=== PATIENT | female | born 1980 | race Caucasian/White ===

== ENCOUNTER → 2018-09-16 08:44 | Outpatient (CLI) | payer BC, MEDICAID, SELFPAY ==
[2018-09-17 14:35] LABS: Amphetamine/Metha Screen,Urine Negative ng/mL (<1000); Barbiturates Screen,Urine Negative ng/mL (<200); Benzodiazepines Screen,Urine Negative ng/mL (<200); Cannabinoid Screen,Urine Negative ng/mL (<50); Cocaine Screen,Urine Negative ng/mL (<300); Methadone Screen,Urine Negative ng/mL (<300); Opiate Screen,Urine Negative ng/mL (<300); Phencyclidine Screen,Urine Negative ng/mL (<25)
== END ==
PROVIDERS: Visit Provider Nurse Practitioner Family
DX: Z79.899 Other long term (current) drug therapy (principal)
CPT/HCPCS: 80305

== ENCOUNTER → 2019-01-13 09:35 | Outpatient (CLI) | payer MEDICAID, SELFPAY ==
--- NOTE | 2019-01-13 09:50 | XR_ITS ---
XR wrist LT min 3V HISTORY anterior wrist pain, prior fall with injury and pain ITS.REASON: possible left wrist fracture ORDERING PHYSICIAN: Moncho Jolly MD PATIENT AGE: 38 years Comparison: None FINDINGS: No fracture or dislocation. No lytic or blastic change. There is normal mineralization.. The joint spaces are well-preserved. No significant degenerative/arthritic changes. No erosive changes evident.. There is generalized vascular calcification . There is a healing fracture involving the proximal phalanx of the fifth finger as before IMPRESSION: Negative wrist
[2019-01-13 11:03] LABS: Hemoglobin 10.6 g/dL (12.2-16.2)
[2019-01-15 08:16] LABS: Parathyroid Hormone Intact 724 pg/mL (15-65)
== END ==
PROVIDERS: PCP Nurse Practitioner Family; Referring Provider Internal Medicine Nephrology; Visit Provider Orthopaedic Surgery
DX: M25.532 Pain in left wrist (principal); N25.81 Secondary hyperparathyroidism of renal origin; D63.8 Anemia in other chronic diseases classified elsewhere
CPT/HCPCS: 36415; 73110; 83970; 85018

== ENCOUNTER → 2019-05-01 16:14 | Outpatient (CLI) | payer MEDICAID, SELFPAY ==
--- NOTE | 2019-05-01 16:20 | XR_ITS ---
XR forearm LT 2V HISTORY: Pain ITS.REASON: pain ORDERING PHYSICIAN: Tanna Solis APRN PATIENT AGE: 39 years COMPARISON: None FINDINGS: No obvious fracture, dislocation, lytic change or blastic change. Normal mineralization. Unremarkable soft tissues. There is generalized vascular calcification. Surgical clips are present in the antecubital region with a rounded soft tissue density overlying the lower biceps area to the patient's AV fistula IMPRESSION: No acute finding
--- NOTE | 2019-05-01 16:20 | XR_ITS ---
EXAM: XR cervical spine 3V HISTORY: Neck pain ITS.REASON: pain ORDERING PHYSICIAN: Tanna Solis APRN PATIENT AGE: 39 years COMPARISON: None FINDINGS: Normal alignment. No fracture or dislocation. No lytic or blastic change. No significant degenerative change. The disc spaces are preserved. Carotid calcifications are present IMPRESSION: Negative cervical spine
== END ==
PROVIDERS: PCP Nurse Practitioner Family; Visit Provider Nurse Practitioner Family
DX: M54.2 Cervicalgia (principal); M79.632 Pain in left forearm
CPT/HCPCS: 72040; 73090

== ENCOUNTER → 2019-06-01 08:00 | Outpatient (POV) | payer MEDICAID, SELFPAY | PROVIDERS: Visit Provider Specialist | DX: G56.02 Carpal tunnel syndrome, left upper limb (principal); R20.0 Anesthesia of skin; R20.2 Paresthesia of skin | CPT/HCPCS: 95886; 95908 ==

== ENCOUNTER → 2019-06-15 12:52 | Outpatient (CLI) | payer MEDICAID, SELFPAY ==
--- NOTE | 2019-06-15 12:56 | CA_ITS ---
APPROVED REPORT Last Putter Away: FABIOLA Laterality: Bilateral Study Quality: Good Indications: carotid calcification seen on X-ray Risk Factors Hypertension: Doppler Spectral Velocity Analysis ECA (R) 84.10/ cm/s ECA (L) 87.20/ cm/s dICA (R) 71.50/25.10 cm/s dICA (L) 85.60/25.90 cm/s Monica (R) 83.30/32.20 cm/s Monica (L) 95.10/37.70 cm/s pICA (R) 88.00/32.20 cm/s pICA (L) 91.90/28.30 cm/s dCCA (R) 62.90/20.40 cm/s dCCA (L) 71.50/24.40 cm/s pCCA (R) 56.60/13.40 cm/s pCCA (L) 74.60/18.10 cm/s Vert (R) 40.10/ cm/s Vert (L) 61.30/ cm/s ICA/CCA 1.39 ICA/CCA 1.33 Conclusion Duplex evaluation demonstrates stenosis of the right proximal internal carotid artery <20% with PSV <140 cm/sec, EDV <100 cm/sec, and IC/CC Ratio <4.0.Duplex evaluation demonstrates stenosis of the left proximal internal carotid artery in the range of 20-49% with PSV <140 cm/sec, EDV <100 cm/sec, and IC/CC Ratio <4.0.Antegrade flow seen bilateral vertebral arteries. Electronically signed by : Madhav Nelson MD 06/16/2019 09:39:58
== END ==
PROVIDERS: PCP Emergency Medicine; Visit Provider Internal Medicine
DX: I65.23 Occlusion and stenosis of bilateral carotid arteries (principal)
CPT/HCPCS: 93880

== ENCOUNTER → 2019-06-19 08:08 | Outpatient (CLI) | payer MEDICAID, SELFPAY ==
--- NOTE | 2019-06-19 | CA_ITS ---
APPROVED REPORT Exam: Pharmacologic Technologist: teddy walter, Ht: 5 ft 7 in Wt: 220 lbs BSA: 2.11 m2 HR: 71 bpm BP: 138/67 mmHg Rhythm: NSR Indications: Abn EKG, SOB Medical History Medications: Lisinopril,,,,, Gabapentin,,,,, Pantoprazole,,,,, Carvedilol,,,,, INSULIN,,,,, Venlafaxine,,,,, TorSEMIDE,,,,, MethylpredNISOne,,,,, TriaMcinlone,,,,, Cinacalet,,,,, Ferric citrate,,,,, Allergies: Morphine Stress Test Details Test: LEXISCAN HR Resting HR: 69 bpm Max Heart Rate (APMHR): 183 bpm Max HR Achieved: 78 bpm Target HR (85% APMHR): 155 bpm % of APMHR: 42 Recovery HR: 76 bpm BP Resting BP: 138.0/67.0 mmHg Max BP: 134/62 mmHg Recovery BP: 123.0/62.0 mmHg ECG Resting ECG: NSR Clinical Reason for Termination: Completed Protocol Exercise duration: 04:15 min Highest Stage Achieved: Exercise capacity: 1.0 METs Stress ECG Conclusion Denies chest pain. Rare PVC. Less than 1.5mm ST segment changes. Non- diagnostic. Images pending. Electronically signed by : David Whatley, 06/24/2019 11:41:11
--- NOTE | 2019-06-19 08:09 | NM_ITS ---
APPROVED REPORT Exam: Nuclear Stress Test NM EXAM: Myocardial Perfusion REST/STRESS Imaging Protocol: Rest Tc-99m/Stress Tc-99m 1 day Resting Data Rest SPECT myocardial perfusion imaging was performed in supine position 30 minutes following the intravenous injection of 10.25 mCi of TC99 Time of rest injection: 8:20AM Administration Route: IV Administration Site: Right AC Pharmacologic Stress Pharmacologic stress test was performed by injecting Regadenoson 0.4 mg IV push followed by the intravenous injection of 31.1 mCi of TC99 Time of stress injection: 9:25AM Time of stress imagin:10AM Administration Route: IV Administration Site: Right AC Heart Rate at time of stress injection: 78 bpm. Gated Stress SPECT was performed 45 minutes after stress injection. The images were gated to evaluate regional wall motion and calculate left ventricular ejection fraction. Nuclear Conclusion Uniform myocardial activity with both stress and rest gated images calculated ejection fraction of 65% with normal wall motion No scintigraphic evidence of Lexiscan induced myocardial ischemia with normal ejection fraction and normal wall motion Electronically signed by : David Whatley, 06/19/2019 13:23:06
--- NOTE | 2019-06-19 10:15 | HMH.ITSHM ---
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 []triamcinolone forsemide patoprazole medrol lisinopril carvedilol insulin calcitriol gabapentin
== END ==
PROVIDERS: PCP Nurse Practitioner Family; Visit Provider Internal Medicine
DX: E11.69 Type 2 diabetes mellitus with other specified complication (principal); I65.29 Occlusion and stenosis of unspecified carotid artery; R06.09 Other forms of dyspnea; R60.9 Edema, unspecified; R94.31 Abnormal electrocardiogram [ECG] [EKG]; Z79.4 Long term (current) use of insulin
CPT/HCPCS: 78452; 93017; 93306; A9502; J2785

== ENCOUNTER → 2019-08-24 11:58 | Outpatient (CLI) | payer MEDICARE, SELFPAY | PROVIDERS: Visit Provider Orthopaedic Surgery | DX: Z48.89 Encounter for other specified surgical aftercare (principal); Z98.890 Other specified postprocedural states; G56.02 Carpal tunnel syndrome, left upper limb | CPT/HCPCS: 87070; 87077; 87186; 87205 ==

== ENCOUNTER 2019-09-03 13:30 | Outpatient (RCR) | payer MEDICARE, SELFPAY | END 2019-09-03 13:35 | disposition home or self-care (01) | LOC: PT 13:30 | PROVIDERS: Visit Provider Internal Medicine Nephrology | DX: R27.8 Other lack of coordination (principal) | CPT/HCPCS: 97110; 97163 ==

== ENCOUNTER 2019-09-07 14:00 | Outpatient (RCR) | payer MEDICARE, SELFPAY ==
--- NOTE | 2019-08-19 16:39 | HMH.PTOPWND ---
Rehab Outpt Wound Evaluation Rehab OP Wound Evaluation Start: 08/19/19 14:46 Freq: Status: Active Protocol: Document 08/19/19 15:20 PWJACE (Rec: 08/19/19 15:39 PWJACE [id number]) Electronically Signed By Yonny Cortez, PT 08/19/19 15:20 Subjective/History History History This is the initial Physical Therapy wound evaluation for Mily Wright. Pt had Carpal tunnel release sx in early july. Pt reports ~ 2 weeks later she had stitches removed and ~ 2 days later she fell on outstretched hand opening surgical incision. Pt rpeorts she self treated for ~ 1 week and returned to Ortho who referred to Wound clinic. Subjective Subjective Pt reports severe c/o TTP Wound Eval Wound Left Proximal Volar Hand Wound Type Incision Is This a Chronic Wound Yes Wound Length (cm) 2.5 Wound Width (cm) 1.0 Wound Bed Appearance Yellow,Ruelas,White,Slough, Eschar,Necrotic Percentage Granulated (%) 40 Percentage of Slough (%) 60 Percentage of Eschar (Yellow) (%) 30 Percentage of Necrosis (Jerry) (%) 30 Wound Margins Description Well Defined Surrounding Tissue Appearance [place] Surrounding Tissue Temperature Warm Drainage Description Serous Drainage Amount Small Drainage Odor No Odor Dressing Status Soiled Wound Topical Solution/Irrigant Antibiotic Irrigant Primary Dressing Silver Dressing Comment tegederm AG mesh Wound Secondary Dressing Type Film Dressing Comment tegederm + pad Wound Debridement Method Sharps,Forceps,Gauze Wound Debridement Amount of Tissue Minimal Removed Wound Debridement Result Healthy Tissue Revealed,Yellow Sloughing Remains Dressing Change Date 08/19/19 Dressing Change Patient Tolerance Tolerated Poorly Wound Problems/Impairments Impairments Problems/Impairmments Impaired Lifting,Impaired Shower/Bathing,Impaired Household Care,Impaired Recreational Activities,Wound Care Needs,Subjective C/O Pain ,Impaired Self Care/Self Management Prognosis Rehab Potential Fair Clinical Impression
== END 2019-09-07 14:05 | disposition home or self-care (01) ==
LOC: PT 14:00
PROVIDERS: PCP Nurse Practitioner Family; Visit Provider Orthopaedic Surgery
DX: M25.532 Pain in left wrist (principal); S61.502A Unspecified open wound of left wrist, initial encounter
CPT/HCPCS: 97161; 97597

== ENCOUNTER → 2020-02-25 18:14 | Outpatient (CLI) | payer MEDICARE, SELFPAY | PROVIDERS: Visit Provider Podiatrist | DX: E11.621 Type 2 diabetes mellitus with foot ulcer (principal); L97.529 Non-pressure chronic ulcer of other part of left foot with unspecified severity | CPT/HCPCS: 87070; 87077; 87186; 87205 ==

== ENCOUNTER → 2020-02-26 14:10 | Outpatient (CLI) | payer MEDICARE, SELFPAY ==
--- NOTE | 2020-02-26 14:12 | US_ITS ---
APPROVED REPORT Exam Type: Ankle to Brachial Index Squadron Worker: RT Mario(R) Indications Claudication: Bilaterally Non-healing Ulcer: Rest Pain: left great toenail came off with possible infection, patient states doctor cultured this wound yesterday. Risk Factors Hypertension Diabetes Pressures/Indices Right Indices Left Indices Brachial 169.00 mmHg Brachial Low Thigh 0.00 mmHg 0.00 Low Thigh 0.00 mmHg 0.00 Calf 0.00 mmHg 0.00 Calf 0.00 mmHg 0.00 Ankle(PT) 109.00 mmHg 0.64 Ankle(PT) 88.00 mmHg 0.52 Ankle(DP) 0.00 mmHg 0.00 Ankle(DP) 85.00 mmHg 0.50 Digit 65.00 mmHg 0.38 Digit 39.00 mmHg 0.23 Findings RT CRICKET=0.6 LT CRICKET=0.5 RT TBI=0.4 LT TBI=0.2 Diminished pulses Abnormal waveforms BP not obtained in left arm due to diabetic fistula Conclusion Medial calcinosis (rigid vessels) is suggested due to noncompressible thigh vessels, bilaterally. RT CRICKET=0.6 LT CRICKET=0.5 RT TBI=0.4 LT TBI=0.2 Diminished pulses Abnormal waveforms Moderate arterial disease Electronically signed by : Madhav Nelson MD 02/26/2020 17:08:19
--- NOTE | 2020-02-26 14:16 | XR_ITS ---
PROCEDURE: XR FOOT WT BEARING LT 3V CLINICAL INDICATION: DM ulcer Pain, COMPARISON: [id number] XR foot LT min 3V from 04/01/2018 FINDINGS: No fracture or dislocation. No lytic or blastic change. There is normal mineralization. The joint spaces are well-preserved. No significant degenerative/arthritic changes. No erosive changes evident. Other findings:There is diffuse vascular calcification. There is borderline pes planus. No bony erosive process evident. IMPRESSION: Borderline pes planus with diffuse vascular calcification Dictated by: Madhav Nelson MD 02/26/2020 15:34 Electronically signed by Madhav Nelson MD in [place] 02/26/2020 15:34
--- NOTE | 2020-02-26 14:16 | XR_ITS ---
PROCEDURE: XR FOOT WT BEARING RT 3V CLINICAL INDICATION: comparison view COMPARISON: [id number] XR foot LT min 3V from 04/01/2018 FINDINGS: No fracture or dislocation. No lytic or blastic change. There is normal mineralization. The joint spaces are well-preserved. No significant degenerative/arthritic changes. No erosive changes evident. Other findings:There is diffuse vascular calcification IMPRESSION: Diffuse vascular calcification otherwise negative Dictated by: Madhav Nelson MD 02/26/2020 15:33 Electronically signed by Madhav Nelson MD in [place] 02/26/2020 15:33
== END ==
PROVIDERS: PCP Emergency Medicine; Visit Provider Podiatrist
DX: R09.89 Other specified symptoms and signs involving the circulatory and respiratory systems (principal); E11.621 Type 2 diabetes mellitus with foot ulcer; E11.628 Type 2 diabetes mellitus with other skin complications; L03.116 Cellulitis of left lower limb; L08.9 Local infection of the skin and subcutaneous tissue, unspecified; L97.529 Non-pressure chronic ulcer of other part of left foot with unspecified severity; Z79.4 Long term (current) use of insulin
CPT/HCPCS: 73630; 93923

== ENCOUNTER → 2020-03-03 14:23 | Outpatient (CLI) | payer MEDICARE, SELFPAY ==
[2020-03-03 14:50] LABS: Basophils # 0.1 K/mm3 (0-0.2); Basophils % 0.7 % (0.1-2.0); Eosinophils # 0.4 K/mm3 (0.0-0.4); Eosinophils % 5.2 % (0.1-12.0); Hematocrit 30.2 % (37.0-47.0); Hemoglobin 8.8 g/dL (12.2-16.2); Lymphocytes # 0.9 K/mm3 (0.7-4.5); Lymphocytes % 11.7 % (10-50); Mean Corpuscular HGB Conc 29.1 g/dL (31.8-35.4); Mean Corpuscular Volume 99.6 fl (81-99); Mean Platelet Volume 8.9 fl (7.4-10.4); Monocytes # 0.4 K/mm3 (0.1-1.0); Monocytes % 5.6 % (1.7-9.3); Neutrophils % 76.9 % (37.0-80.0); Platelet Count 237 K/mm3 (142-424); Red Blood Count 3.04 M/mm3 (4.20-5.40); Red Cell Distribution Width 16.7 % (11.5-17.5); White Blood Count 7.9 K/mm3 (4.8-10.8)
[2020-03-03 15:21] LABS: Erythrocyte Sedimentation Rate > 140 mm/hr (0-20)
[2020-03-03 15:57] LABS: Hemoglobin A1C 5.2 % (4.0-6.0)
[2020-03-03 16:16] LABS: Chloride 99 mmol/L (98-107); Potassium 5.8 mmoL/L (3.5-5.1); Sodium 135 mmol/L (136-145)
[2020-03-03 16:19] LABS: Alanine Aminotransferase 13 U/L (12-78); Albumin Level 2.7 g/dl (3.5-5.0); Albumin/Globulin Ratio 1.1 (1.1-1.8); Alkaline Phosphatase 93 U/L (38-126); Anion Gap 21.8 mEq/L (5-15); Aspartate Amino Transferase 16 U/L (14-36); Bilirubin,Total 0.5 mg/dl (0.2-1.3); Blood Urea Nitrogen 64 mg/dl (7-17); Carbon Dioxide 20 mmol/L (22.0-30.0); Estimated Glomerular Filt Rate 3 ml/min (>60); GFR (African American) 4 ML/MIN (>60); Globulin 2.5 g/dL (1.3-3.2); Glucose 107 mg/dl (74-100); Total Protein,Serum 5.2 g/dl (6.3-8.2)
[2020-03-03 16:21] LABS: Calcium 6.3 mg/dl (8.4-10.2)
[2020-03-03 16:24] LABS: C-Reactive Protein 17.5 mg/L (0-4)
== END ==
PROVIDERS: Visit Provider Podiatrist
DX: E11.621 Type 2 diabetes mellitus with foot ulcer (principal); E11.628 Type 2 diabetes mellitus with other skin complications; L03.116 Cellulitis of left lower limb; L08.9 Local infection of the skin and subcutaneous tissue, unspecified; L97.529 Non-pressure chronic ulcer of other part of left foot with unspecified severity; E11.8 Type 2 diabetes mellitus with unspecified complications; Z79.4 Long term (current) use of insulin
CPT/HCPCS: 36415; 80053; 83036; 85025; 85651; 86140

== ENCOUNTER 2020-05-14 12:27 | Observation (INO) | payer MEDICARE, SELFPAY ==
[2020-05-14] VITALS (12 sets, daily range): BP systolic 140–167; BP diastolic 70–85; PULSE 70–82; RESP 17–20; TEMP 36.4–36.5; O2SAT 93–100; BMI 35.2; BMI 38.7
[2020-05-14 13:02] LABS: Basophils % 0.4 % (0.1-2.0); Eosinophils # 0.6 K/mm3 (0.0-0.4); Hematocrit 26.7 % (37.0-47.0); Hemoglobin 8.1 g/dL (12.2-16.2); Lymphocytes # 1.3 K/mm3 (0.7-4.5); Lymphocytes % 18.6 % (10-50); Mean Corpuscular HGB Conc 30.4 g/dL (31.8-35.4); Mean Corpuscular Hemoglobin 30.3 pg (27.0-31.2); Mean Corpuscular Volume 99.8 fl (81-99); Mean Platelet Volume 8.9 fl (7.4-10.4); Monocytes # 0.6 K/mm3 (0.1-1.0); Monocytes % 7.8 % (1.7-9.3); Neutrophils # 4.6 K/mm3 (1.8-7.8); Neutrophils % 65.3 % (37.0-80.0); Platelet Count 254 K/mm3 (142-424); Red Blood Count 2.68 M/mm3 (4.20-5.40); Red Cell Distribution Width 17.6 % (11.5-17.5); White Blood Count 7.1 K/mm3 (4.8-10.8)
[2020-05-14 13:04] LABS: Chloride 97 mmol/L (98-107); Potassium 4.7 mmoL/L (3.5-5.1); Sodium 135 mmol/L (136-145)
[2020-05-14 13:06] LABS: Blood Urea Nitrogen 60 mg/dl (7-17)
--- NOTE | 2020-05-14 13:06 | XR_ITS ---
PROCEDURE: XR CHEST PORTABLE Patient Age:40Y CLINICAL HISTORY: low SaO2 Dyspnea COMPARISON: [id number] XR ribs LT min 3V w CXR1V from 10/01/2018 CXR2V XR chest 2V from 10/01/2018 CXR1VP XR chest portable from 10/02/2018 FINDINGS: AP supine portable CXR, lordotic projection performed today is compared to 10/01/2018 and 10/02/2018 portable CXR The AP lordotic projection does accentuate heart size but there does appear to be progressive cardiomegaly with a rather boot-shaped heart. If the patient is progressively short of breath a echocardiogram should be considered. Slight generous pulmonary vascularity with mild accentuation of upper lobe vessels which could be reflection of the lordotic projection. Suggestion minimal pleural fluid left base. Note some minimal fluid likely present along lateral lateral aspect of the left left lung base towards CP angle left CP angle, as well as some blunting at the left cardiophrenic angle but a both these features suspect surf small left pleural effusion. Cannot exclude some subtle early infiltrate at the medial left base IMPRESSION: . Cardiomegaly- enlarged globular heart appearance in part accentuated by the AP portable supine CXR,& lordotic projection but might consider follow-up more optimal upright PA lateral CXR; and or echocardiogram . Mild prominence of pulmonary vascularity; possible mild vascular congestion . Small left pleural effusion likely present . Questionable subtle infiltrate medial left base vs slight additional density from small pleural fluid If dyspnea or low O2 sats persist-we encourage follow-up PA and lateral chest if can be tolerated; and again given the more globular appearance of the heart on today's CXR echocardiogram might be considered Dictated by: Galo Nicole MD 05/14/2020 14:51 Electronically signed by Galo Nicole MD in [place] 05/14/2020 14:51
[2020-05-14 13:07] LABS: Alanine Aminotransferase 9 U/L (12-78); Albumin Level 2.5 g/dl (3.5-5.0); Albumin/Globulin Ratio 0.9 (1.1-1.8); Alkaline Phosphatase 78 U/L (38-126); Anion Gap 19.7 mEq/L (5-15); Aspartate Amino Transferase 20 U/L (14-36); Bilirubin,Total 0.6 mg/dl (0.2-1.3); Calcium 6.3 mg/dl (8.4-10.2); Carbon Dioxide 23 mmol/L (22.0-30.0); Globulin 2.7 g/dL (1.3-3.2); Glucose 98 mg/dl (74-100); Total Protein,Serum 5.2 g/dl (6.3-8.2)
--- NOTE | 2020-05-14 13:07 | PC.NURSE ---
notified ER MD of pt presenting s/s-MD gave verbal orders
[2020-05-14 13:14] LABS: Creatinine Clearance Estimated 8 mL/min (50-200); Estimated Glomerular Filt Rate 3 ml/min (>60); GFR (African American) 3 ML/MIN (>60)
--- NOTE | 2020-05-14 13:15 | ECG_ITS ---
APPROVED REPORT Exam: Resting ECG HR:79 bpm ECG Measurements Heart Rate 79 AXES DE 146 P 44 QRSd 82 QRS 53 QT 436 T 90 QTc 499 <Conclusion> Normal sinus rhythm Prolonged QT Abnormal ECG Electronically signed by : Nain Rose, 05/14/2020 16:50:00
--- NOTE | 2020-05-14 13:22 | PC.NURSE ---
late entry: pt noted to have frequent low SaO2 readings, pt is awake alert, oriented (this was directly after triage of pt and I had left the room). SaO2 78% on RA. Pt encouraged to take deep breaths, fingers are warm, cap refill WNL. SaO2 will come up to 90% on RA. Oxygen at 2L applied per NC, SaO2 100% on 2L per nc ER MD notified of the above.
[2020-05-14 13:28] LABS: Troponin I 0.07 ng/ml (0.00-0.034)
--- NOTE | 2020-05-14 13:29 | PC.NURSE ---
late entry: during triage pt states she has not done her peritoneal dialysis since saturday, states is concerned her tubing is contaminated r/t staff at prior to her angioplasty replacing existing cap back on her tubing, states she was told never to do this. Pt states she is supposed to do dialysis daily.
--- NOTE | 2020-05-14 16:15 | HMH.EDGENADL ---
ED Disposition Clinical Impression: Bilateral leg weakness, Bilateral leg numbness, Peripheral vascular disease Chronic renal failure Qualifiers: Chronic kidney disease stage: unspecified stage Qualified Code(s): N18.9 - Chronic kidney disease, unspecified Disposition: Admitted as Observation Condition on Discharge: Fair - Critical Care Critical Care Time: No Attestation: On 05/14/20, the high probability of a clinically significant, sudden or life threatening deterioration of the following system(s) required my full and direct attention, intervention and personal management. The time I documented below is in addition to time spent performing reported procedures but includes the following listed in this critical care notation. Medical Decision Making - Medical Records Medical records reviewed: Yes: I reviewed the patient's medical records. - Johnny Inquiry Pt receiving controlled substance: No Vital Signs: 05/14/20 12:29 05/14/20 14:56 05/14/20 15:13 Temperature 97.7 F Temperature Source Oral Pulse Rate Pulse Rate [Right Radial] 82 80 76 Respiratory Rate 18 20 Blood Pressure Blood Pressure [Right Arm] 140/76 152/82 H 160/82 H Blood Pressure Mean [Right Arm] 97 105 108 Blood Pressure Source Blood Pressure Source [Right Arm] Automatic Cuff Automatic Cuff Automatic Cuff Blood Pressure Position Blood Pressure Position [Right Arm] Sitting Supine Sitting 02 Sat by Pulse Oximetry 93 L 100 100 Oxygen Delivery Method Room Air Nasal Cannula Room Air Oxygen Flow Rate (LPM) 05/14/20 15:39 05/14/20 16:31 05/14/20 17:00 Temperature Temperature Source Pulse Rate Pulse Rate [Right Radial] 82 76 71 Respiratory Rate Blood Pressure Blood Pressure [Right Arm] 153/85 H 164/81 H 144/71 H Blood Pressure Mean [Right Arm] 107 108 95 Blood Pressure Source Blood Pressure Source [Right Arm] Automatic Cuff Automatic Cuff Blood Pressure Position Blood Pressure Position [Right Arm] Sitting Sitting 02 Sat by Pulse Oximetry 100 100 98 Oxygen Delivery Method Room Air Room Air Oxygen Flow Rate (LPM) 05/14/20 17:30 05/14/20 18:41 05/14/20 19:29 Temperature 97.7 F Temperature Source Oral Pulse Rate 70 Pulse Rate [Right Radial] 75 70 Respiratory Rate 20 18 Blood Pressure 145/70 H Blood Pressure [Right Arm] 165/80 H 145/70 H Blood Pressure Mean [Right Arm] 108 95 Blood Pressure Source Automatic Cuff Blood Pressure Source [Right Arm] Automatic Cuff Automatic Cuff Blood Pressure Position Sitting Blood Pressure Position [Right Arm] Supine Sitting 02 Sat by Pulse Oximetry 100 99 Oxygen Delivery Method Room Air Nasal Cannula Oxygen Flow Rate (LPM) 2 - Lab Data Lab results reviewed: Yes: I reviewed the patient's lab results. Lab Results 05/14/20 12:30: WBC 7.1, RBC 2.68 L, Hgb 8.1 L, Hct 26.7 L, MCV 99.8 H, MCH 30.3, MCHC 30.4 L, RDW 17.6 H, Plt Count 254, MPV 8.9, Neut % (Auto) 65.3, Lymph % (Auto) 18.6, [place] % (Auto) 7.8, Eos % (Auto) 8.0, Baso % (Auto) 0.4, Neut # (Auto) 4.6, Lymph # (Auto) 1.3, [place] # (Auto) 0.6, Eos # (Auto) 0.6 H, Baso # (Auto) 0.0 05/14/20 12:30: Sodium 135 L, Potassium 4.7, Chloride 97 L, Carbon Dioxide 23, Anion Gap 19.7 H, BUN 60 H, Creatinine 15.00 H, Estimated Creat Clear 8, Estimated GFR 3 L*, Est GFR ( Amer) 3 L*, Glucose 98, Calcium 6.3 L, Total Bilirubin 0.6, AST 20, ALT 9 L, Alkaline Phosphatase 78, Total Protein 5.2 L, Albumin 2.5 L, Globulin 2.7, Albumin/Globulin Ratio 0.9 L 05/14/20 12:30: Troponin I 0.07 H 05/14/20 18:05: Troponin I 0.09 H Result diagrams: 05/14/20 12:30 05/14/20 12:30 Orders (Tests/Meds): ED MEDICATIONS Generic Name Dose Route Start Last Admin Trade Name Freq PRN Reason Stop Dose Admin Acetaminophen 650 mg 05/14/20 19:08 Acetaminophen 325mg Tab PO 06/13/20 19:07 Q4HP PRN As Needed for Fever or Pain Calcitriol 0.25 mcg 05/15/20 09:00 Calcitriol 0.25mcg Capsule PO
--- NOTE | 2020-05-14 16:50 | PC.NURSE ---
Calling [facility] at this time.
--- NOTE | 2020-05-14 16:55 | PC.NURSE ---
Dr Hyde speaking with Dr Mahmood at this time.
--- NOTE | 2020-05-14 17:09 | PC.NURSE ---
Dr Hyde speaking with Dr belchre
--- NOTE | 2020-05-14 17:22 | PC.NURSE ---
[facility] states that this is not a vascular emergency and they do not think she needs transferred at this time. is on divert. spoke with Dr Wolfe about pt. At this time pt is trying to contact family to see if they can get her family to see if anyone could bring her machine and supplies to her. If she is unable to make those arrangements Dr Hyde suggests calling [facility] or [place].
--- NOTE | 2020-05-14 17:58 | PC.NURSE ---
Pt states that she has a family member that will bring her whatever she needs.
[2020-05-14 18:29] LABS: Troponin I 0.09 ng/ml (0.00-0.034)
--- NOTE | 2020-05-14 18:30 | PC.NURSE ---
pt sitting up in bed on the stretcher, legs crossed pt reports she is able to move her legs better than before.
--- NOTE | 2020-05-14 19:20 | PC.NURSE ---
attempted to call report to second floor, no answer when wire steward transferred me.
--- NOTE | 2020-05-14 19:21 | PC.NURSE ---
pt reports she is also on eliquis and oxycodone but she does not know the dosages. Pt is going to have her family bring her medications in to her.
--- NOTE | 2020-05-14 19:28 | PC.NURSE ---
report called to lannyrn on second floor at this time
--- NOTE | 2020-05-14 19:35 | PC.NURSE ---
PT ARRIVED TO FLOOR VIA STRETCHER FROM ED AT 193
--- NOTE | 2020-05-14 23:07 | PC.NURSE ---
verbal orders received per md for this patient. keflex 250mg per protocol for possible infection prophylaxis r/t peritoneal dialysis tubing. carvedilol dose updated per pt's medications. oxycodone add for prn pain. hunter rios notified of updates
[2020-05-14 23:31] LABS: POC Glucose,Bedside 108 (70-110)
[2020-05-15] VITALS (13 sets, daily range): BP systolic 99–139; BP diastolic 38–78; PULSE 68–80; RESP 13–20; TEMP 36.4–36.8; O2SAT 92–100
--- NOTE | 2020-05-15 02:34 | PC.NURSE ---
She is A&Ox4. She reports that she was able to walk until this happened. She states that her legs felt like jello. I felt like a jellyfish. She reports that her legs have improved and that she can move them on her own but states she does not think she can stand on her own. She reports increased sensitivity in her feet and states it feels like nerve pain when asked to describe it. She has been moving her legs independently. She placed her right foot on the floor and then screamed. She reports that she had an angioplasty with stent placed in her LLE at on and was discharged on Saturday. She reports that the plan is to do the same for the RLE. She reports having a f/u appointment scheduled in 2 weeks and the plan is to discuss the right foot then. She has multiple areas on her skin. Pinpoint rash present on her right thigh where she reports she had an itch during her admission to and used a plastic knife to scratch it. BLE have 1+ edema. Her bilateral feet are cool to touch. Doppler was used to assess pulses. Right foot with 2+ dorsalis pedis pulse, 1+ posterior tibial pulse. Left foot with 1+ dorsalis pedis and posterior tibial pulse. Areas of pulse locations were previously marked with green marker. Multiple necrotic areas on toes. Pictures are available on the chart. She has scattered scabbed areas on her neck, back, RUE, and LLE. Her back also has linear scratch knowles on the right side. She has a large scar on her LUE. She is a left limb alert r/t fistula in LAC. Thrill is present. DSG in place on her right groin with serosanguineous drainage with no new drainage present. She reports that she cannot lift over 5lbs. [facility] helped assist with lifting of bags for dialysis. She reports that she does her own dialysis and is supposed to do it daily. She reported that she does not always do it daily because some days she takes her medicine and falls asleep. She reports that she has not done her dialysis since Saturday night because I was afraid my tube got contaminated. She reported that after her procedure that a nurse put the old cap back on and that she was told never to do that and to use a new cap. She used her personal cell phone at 1955 on 05/14/20 to contact an instrument person nurse for [facility] and stated that she was told to discuss with the doctor getting ordered Keflex 250mg PO in case of infection from contamination of the cap. MD instrument person was contacted and Keflex was ordered. She also reports back pain and has placed an additional pillow in bed behind her back to help with positioning. She also received PRN medications for pain. She brought her home medications and they are locked in the med international project manager room. Not all of her reported home medications are in her drawer. She reports that she has been out of venlafaxine and pantoprazole because she is unable to afford them. Most of her medications she reports having not taken in 2 days. She also reported that she sometimes remembers to take binder medications. See home medication reconciliation. Her brother brought in her home dialysis equipment. She was able to set it up herself other than needing assistance with lifting the bags into placement as needed for dialysis. Placement of bags was placed per her instructions. Tubing from dialysis runs into the bathroom. She reports that it can be disposed of in the toilet. Hat is placed in toilet for measurement. Dialysis output is bright yellow in color. She started her own dialysis at 2250 on 05/14/20 and reports that it will run 8-9 hours. She requests not to have fluids at this time because of the fluids infusing during dialysis. She reports that she has a poor appetite. She ate food that her family brought into to her. Reported her last BM was on 05/13/20. She states that she has nausea and vomiting alot but stated it has been a few days I guess since the last time she vomited. She was placed on telemetry and kassandra
[2020-05-15 05:12] LABS: POC Glucose,Bedside 147 (70-110)
--- NOTE | 2020-05-15 05:36 | PC.NURSE ---
She has been resting in bed. Awakens easily. 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 Continues in NSR on telemetry. Has been moving all extremities independently and crosses left leg under right at times. Peritoneal dialysis in progress. Previous output amount recorded. She states the machine will give a total amount of output at the end of dialysis.
[2020-05-15 06:39] LABS: Blood Urea Nitrogen 59 mg/dl (7-17); Carbon Dioxide 25 mmol/L (22.0-30.0); Chloride 98 mmol/L (98-107); Glucose 125 mg/dl (74-100); Sodium 135 mmol/L (136-145)
[2020-05-15 07:02] LABS: Calcium 6.2 mg/dl (8.4-10.2); Creatinine Clearance Estimated 9 mL/min (50-200); Estimated Glomerular Filt Rate 3 ml/min (>60); GFR (African American) 3 ML/MIN (>60)
--- NOTE | 2020-05-15 10:02 | HMH.HP ---
*Admission Date: 05/14/20 *Chief complaint: leg pain *History of present illness: this pt presented to the ed -pt has sig hx of pvd and followed by vascular surg at and has crf on peritoneal dialysis at home - pt presented to ed with inc pain and dec ability to walk-Pt reports weakness in buck legs, pt states my legs feel like jello . Pt reports began having sudden weakness in legs lastnight at 10 pm. Pt reports she had an angioplasty done at on and was discharged home yesterday. Pt reports unable to walk. Upon asssessment pt is slow to move her legs around, attempts to pick legs off the bed without success, pt unable to resist gravity when i lift her legs up of the bed. Pt has weak pulses on doppler noted-pedal and post tib. Patient complains of bilateral leg weakness and numbness onset last night at about 10 PM. States they are like jellyfish . States she is unable to stand and bear weight. She was at [facility] 2 days ago and had a stent placed in her left lower extremity. She said they accessed through the right groin. She says that when she left the hospital yesterday discharge she was able to ambulate. She says her arms feel little weak but she is able to use them. No fever or vomiting. She has had some abdominal discomfort since she was in the hospital. She is a peritoneal dialysis patient, normally does peritoneal dialysis daily. She has not had peritoneal dialysis since . She says on , the day of her surgery, she thinks that she may have forgotten to drain her dialysate. She told them that in surgery and they tried to drain it, but she is uncertain whether they were successful. Because of this she decided not to perform dialysis since then. 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 She has had this for several months, which necessitated her stent 2 days ago. She makes very little urine. She has not had any urinary or fecal incontinence. She denies numbness of the groin. The numbness of her leg starts at the hips bilaterally and goes down to her toes. gabriel Consulted: Shannon - vascular surgery Time: 17:07 Reason -: Surgical Eval/Care Comment/Response: He performed the patient's angioplasty. He knows her well. He does not feel there is any surgical emergency. [facility] is on [id number] divert and cooperative education coordinator does not feel that she would be accepted through the emergency room either. Additional Consult: Aiden Time: 17:20 Reason -: Admission, Pt condition Comment/Response: He says he can admit the patient here if she is able to do her own dialysis on the floor since we do not have personnel or equipment to do that. She initially said that her equipment is at home but she can call to see if somebody can bring it. Dr. Wolfe was okay with admission and that circumstance. However, now the patient says that she thinks somebody could bring her supplies, but not her machine and we do not have a machine here to do her peritoneal dialysis. She therefore requests being transferred to a different hospital. We will attempt [facility] in [facility]. 6:00 PM: Patient states that family will bring her all of her supplies, including her machine, therefore she can be admitted here. pt was admitted for treatment [facility] History I have reviewed the patient's past medical history: Yes Medical History: Reports:: Anxiety, Diabetes Mellitus Type 2, Hypertension, Peripheral Vascular Disease, Renal Disease, Renal Insufficiency Denies:: Cancer, Diabetes Mellitus Type 1, Internal Pacemaker, MRSA, Seizures *Have you ever received a pneumonia vaccine?: Yes *Have you received a flu vaccine this season?: No Other Medical History: Reports: Anemia, Other. Denies: Blood Transfusion Reaction Laterality Cases: Left: Carpal Tunnel Release Other Surgeries: Yes: Angioplasty (stent placed in LLE.), Cholecystectomy, , Other (Fistula left arm.). No: Pacemaker
--- NOTE | 2020-05-15 11:46 | HMH.PHAVTE ---
[facility] Pharmacy VTE Monitoring - Patient Demographics Admission date: 05/15/20 Report Date: 05/15/20 Time: 11:46 Allergies/Adverse Reactions: Patient Allergies morphine Allergy (Verified 05/14/20 21:27) Height: 1.7 m Weight: 112.3 kg Patient Problems: Current Active Problems Bilateral leg weakness (Acute) Bilateral leg numbness (Acute) Chronic renal failure (Acute) PVD (peripheral vascular disease) (Acute) - VTE Risk Labs: VTE Related Lab Results Hgb 8.1 g/dL (12.2-16.2) L 05/14/20 12:30 Hct 26.7 % (37.0-47.0) L 05/14/20 12:30 Plt Count 254 K/mm3 (142-424) 05/14/20 12:30 BUN 59 mg/dl (7-17) H 05/15/20 05:40 Creatinine 14.30 mg/dl (0.52-1.04) H 05/15/20 05:40 Estimated Creat Clear 9 mL/min (50-200) 05/15/20 05:40 VTE Score: 1 VTE Risk Level: Very Low Risk - Prophylaxis Types of VTE Prophylaxis: TEDS Knee High (LOLI HOSE ORDER PLACED)
[2020-05-15 11:51] LABS: POC Glucose,Bedside 114 (70-110)
[2020-05-15 17:02] LABS: POC Glucose,Bedside 96 (70-110)
--- NOTE | 2020-05-15 17:32 | PC.NURSE ---
Pt is alert and oriented. She was encouraged to get up to the chair but has rested in bed the whole shift. Refused bath. No pain reported on assessments but she did have an episode of nausea/gagging this afternoon. Zofran administered with her reporting some relief. She refused her po antibiotic stating she couldn't take it on an empty stomach. I offered crackers, soup, popsicle, etc.. but patient refused all except ice chips. She is currently resting in bed with her eyes closed. Pedal pulses had to be dopplered. Left foot has some swelling and erythema to dorsum. No further complaints or requests at this time.
[2020-05-15 21:11] LABS: POC Glucose,Bedside 95 (70-110)
[2020-05-16] VITALS (7 sets, daily range): BP systolic 129–192; BP diastolic 59–79; PULSE 75–92; RESP 16–20; TEMP 36.4–36.8; O2SAT 90–99; BMI 39.2; BMI 39.1
--- NOTE | 2020-05-16 01:08 | PC.NURSE ---
She is A&Ox4. Has vomited twice thus far this shift. She refused her medications r/t nausea and vomiting. She set up and started her dialysis at 2245 on 05/15/20. Color Tester helped with lifting the bags. Her family brought her in [facility] and she stated she could not eat much of it. Trace edema to BLE. Faint 1+ pulses on bilateral dorsalis pedis and posterior tibial pulses. She denies pain. Continues as a left limb alert r/t fistula. BUE with strong, equal brand activation manager. She is turning herself in bed but states she cannot stand right now.
[2020-05-16 05:36] LABS: POC Glucose,Bedside 153 (70-110)
--- NOTE | 2020-05-16 05:41 | PC.NURSE ---
She has vomited several times t/o the shift. Has received IV medications but refused all PO meds.
--- NOTE | 2020-05-16 08:00 | CA_ITS ---
APPROVED REPORT EXAM: Comprehensive 2D, Doppler, and color-flow Echocardiogram Ict Managers: Mignon Petit RVT Ht: 5 ft 6 in Wt: 250lbs BSA: 2.20 BP: 160/82 mmHg Indications: MURMUR,HTN,DM,CARDIOMEGALY,PVD,CKD,ON PERITONEAL DIALYSIS 2D Dimensions LVOT 1.43 cm (M/F) 1.5-2.5 M-Mode Dimensions RVDd 3.02 cm (0.9-2.6) LVDd 5.01 cm (3.5-5.7) LVDs 2.25 cm (3.5-5.7) IVSd 0.98 cm (0.6-1.1) PWd 1.10 cm (0.6-1.1) EF (Teich) 85.60% FS 55.10% EDV (Teich) 118.80 mL ESV (Teich) 17.10 mL LV Diastology E/A Ratio 0.74 Aortic Valve LVOT Max 286.00 (70-110 cm/s) LVOT VTI 63.96 cm Mitral Valve MV A Velocity 103.00 (40-130 cm/s) Left Ventricle Left atrium is mildly enlarged, left ventricle is normal size, mild concentric left ventricular hypertrophy, visually estimated ejection fraction 55% with no regional wall motion abnormality, grade 1 diastolic dysfunction seen without tissue Doppler evidence of raise left atrial pressure. Right Ventricle Right atrium and right ventricle are normal size and contractility. Aortic Valve Aortic valve is thickened and calcified with moderate reduction in leaflet mobility, the mean gradient across valve is 22 mmHg, valve area 1.36 cm??? represents moderate aortic stenosis, there is no aortic insufficiency. Mitral Valve Mitral valve leaflets are minimally thickened, there is mild mitral calcification present, there is no significant mitral inflow obstruction, there is mild mitral regurgitation. Tricuspid Valve Tricuspid valve grossly normal, there is moderate tricuspid regurgitation, calculated right ventricular systolic pressure is 50 mmHg, inferior vena cava is mildly dilated without significant inspiratory collapse. Pulmonic Valve Pulmonic valve is poorly visualized. Great Vessels Aortic root is normal size. Pericardium There is moderate-sized circumferential pericardial effusion noted without Doppler evidence of tamponade physiology. Conclusion 1. Mildly enlarged left atrium, normal left ventricular size, mild concentric left ventricular hypertrophy, visually estimated ejection fraction 55% with no regional wall motion abnormality, grade 1 diastolic dysfunction seen without tissue Doppler evidence of raise left atrial pressure. 2. Thickened and calcified aortic valve with mean gradient across valve of 22 mmHg, valve area 1.36 cm??? represents moderate aortic stenosis, there is no aortic insufficiency. 3. Moderate-sized pericardial effusion without Doppler evidence of tamponade physiology. 4. Mild mitral and moderate tricuspid regurgitation, calculated right ventricular systolic pressure is 50 mmHg. 5. Inferior vena cava is mildly dilated without significant inspiratory collapse. Electronically signed by : Lonny Montano, 05/16/2020 19:12:38
[2020-05-16 10:03] LABS: POC Glucose,Bedside 174 (70-110)
[2020-05-16 11:49] LABS: Basophils % 0.2 % (0.1-2.0); Eosinophils # 0.3 K/mm3 (0.0-0.4); Hematocrit 31.2 % (37.0-47.0); Hemoglobin 9.7 g/dL (12.2-16.2); Lymphocytes # 0.6 K/mm3 (0.7-4.5); Lymphocytes % 7.1 % (10-50); Mean Corpuscular Hemoglobin 30.3 pg (27.0-31.2); Mean Corpuscular Volume 97.7 fl (81-99); Mean Platelet Volume 9.5 fl (7.4-10.4); Monocytes # 0.3 K/mm3 (0.1-1.0); Monocytes % 3.3 % (1.7-9.3); Neutrophils # 7.3 K/mm3 (1.8-7.8); Neutrophils % 86.4 % (37.0-80.0); Platelet Count 246 K/mm3 (142-424); Red Cell Distribution Width 17.3 % (11.5-17.5); White Blood Count 8.5 K/mm3 (4.8-10.8)
[2020-05-16 11:51] LABS: MANUAL DIFFERENTIAL MANUAL DIFFERENTIAL (MANUAL DIFF)
[2020-05-16 11:56] LABS: Chloride 97 mmol/L (98-107); Sodium 137 mmol/L (136-145)
[2020-05-16 11:57] LABS: Potassium 4.4 mmoL/L (3.5-5.1)
[2020-05-16 11:59] LABS: Blood Urea Nitrogen 52 mg/dl (7-17); Creatinine Clearance Estimated 10 mL/min (50-200); Estimated Glomerular Filt Rate 3 ml/min (>60); GFR (African American) 4 ML/MIN (>60)
[2020-05-16 12:00] LABS: Anion Gap 20.4 mEq/L (5-15); Carbon Dioxide 24 mmol/L (22.0-30.0); Glucose 163 mg/dl (74-100)
[2020-05-16 12:01] LABS: Calcium 6.7 mg/dl (8.4-10.2)
--- NOTE | 2020-05-16 12:43 | P.PN_ITS ---
Internal Medicine - PN: Subj *Date: 05/17/20 *Time: 00:07 Interval history: nausea but otherwise ok - await pod consult and monitor labs Exam Vital signs and Labs for Last 24 Hours: Temp Pulse Resp BP Pulse Ox 97.9 F 92 H 18 192/74 H 90 L 05/16/20 11:51 05/16/20 11:51 05/16/20 11:51 05/16/20 11:51 05/16/20 11:51 Laboratory Results - last 24 hr 05/15/20 16:28: POC Glucose 96 05/15/20 20:12: POC Glucose 95 05/16/20 04:37: POC Glucose 153 H 05/16/20 09:55: POC Glucose 174 H 05/16/20 11:41: WBC 8.5, RBC 3.20 L, Hgb 9.7 L, Hct 31.2 L, MCV 97.7, MCH 30.3, MCHC 31.0 L, RDW 17.3, Plt Count 246, MPV 9.5, Neut % (Auto) 86.4 H, Lymph % (Auto) 7.1 L, [place] % (Auto) 3.3, Eos % (Auto) 3.0, Baso % (Auto) 0.2, Neut # (Auto) 7.3, Lymph # (Auto) 0.6 L, [place] # (Auto) 0.3, Eos # (Auto) 0.3, Baso # (Auto) 0.0 05/16/20 11:41: Sodium 137, Potassium 4.4, Chloride 97 L, Carbon Dioxide 24, Anion Gap 20.4 H, BUN 52 H, Creatinine 13.80 H, Estimated Creat Clear 10, Estimated GFR 3 L*, Est GFR ( Amer) 4 L* D, Glucose 163 H, Calcium 6.7 L I & O for Last 24 hours: Intake & Output 05/14/20 05/15/20 05/16/20 05/17/20 11:59 11:59 11:59 11:59 Intake Total 370 / 370 1113 / 1113 Output Total 1600 / 51282 8991 / 8991 Balance -1230 / -49262 -7878 / -7878 Weight 247 lb 9.266 oz 250 lb 0.067 oz - Constitutional no acute distress, obese - *Routine HEENT Exam Head: Present: normocephalic Eye: Present: EOMI, PERRL ENT: Present: mucous membranes dry - *Routine Neck Exam Present: supple - *Routine Respiratory Exam Present: decreased breath sounds - *Routine Cardiovascular Exam Present: RRR, murmur - *Routine Abdominal Exam Present: soft - *Routine Extremities Exam Comments: chronic changes - *Routine Skin Exam Present: erythema - *Routine Neurological Exam Present: alert, CN II-XII intact - Routine Psychiatric Exam Present: normal affect Assessment and Plan (1) Chronic renal failure Current visit: Yes Status: Acute Qualifiers: Chronic kidney disease stage: unspecified stage Qualified Code(s): N18.9 - Chronic kidney disease, unspecified Category: Medical Code(s): N18.9 - Chronic kidney disease, unspecified (2) PVD (peripheral vascular disease) Current visit: Yes Status: Acute Category: Medical Code(s): I73.9 - Peripheral vascular disease, unspecified (3) ESRD (end stage renal disease) on dialysis Current visit: No Status: Acute Category: Medical Code(s): N18.6 - End stage renal disease; Z99.2 - Dependence on renal dialysis (4) Obesity (BMI 30-39.9) Current visit: Yes Status: Acute Category: Medical Code(s): E66.9 - Obesity, unspecified (5) Cellulitis and abscess of foot Current visit: Yes Status: Acute Category: Medical Code(s): L03.119 - Ce llulitis of unspecified part of limb; L02.619 - Cutaneous abscess of unspecified foot (6) Hypocalcemia Current visit: Yes Status: Acute Category: Medical Code(s): E83.51 - Hypocalcemia (7) Cardiomegaly Current visit: Yes Status: Acute Category: Medical Code(s): I51.7 - Cardiomegaly
[2020-05-16 12:49] LABS: Eosinophils % 2 % (0-3); Lymphocytes % 12 % (10-50); Neutrophils % 86 % (42-76); Platelet Estimate Normal; RBC Morphology Normal; Total Cells Counted 100
--- NOTE | 2020-05-16 13:02 | XR_ITS ---
PROCEDURE: XR FOOT LT MIN 3V CLINICAL INDICATION: DM ulcers, gangrene COMPARISON: [id number] XR foot LT min 3V from 04/01/2018 XR FOOT WT BEARING LT 3V from 02/26/2020 XR FOOT WT BEARING RT 3V from 02/26/2020 FINDINGS: No fracture or dislocation. No lytic or blastic change. There is normal mineralization. The joint spaces are well-preserved. No significant degenerative/arthritic changes. No erosive changes evident. Other findings:There is significant vascular calcification. No bony erosive process evident. There is mild dilatation of the distal aspect of the dorsalis pedis IMPRESSION: Significant vascular calcification with mild dilatation of the dorsalis pedis artery distally otherwise negative Dictated by: Madhav Nelson MD 05/16/2020 13:55 Electronically signed by Madhav Nelson MD in [place] 05/16/2020 13:55
--- NOTE | 2020-05-16 13:02 | XR_ITS ---
PROCEDURE: XR FOOT RT MIN 3V CLINICAL INDICATION: DM ulcers, Gangrene COMPARISON: [id number] XR foot LT min 3V from 04/01/2018 XR FOOT WT BEARING LT 3V from 02/26/2020 XR FOOT WT BEARING RT 3V from 02/26/2020 FINDINGS: There is extensive vascular calcification. No fracture or dislocation. No bony destructive process. No significant degenerative change. IMPRESSION: Significant vascular calcification otherwise negative Dictated by: Madhav Nelson MD 05/16/2020 13:54 Electronically signed by Madhav Nelson MD in [place] 05/16/2020 13:54
--- NOTE | 2020-05-16 13:03 | HMH.ORTHOCON ---
*Admission Date: 05/15/20 *Reason for consult:: Gangrene *History of present illness: Ms. Wright is a 40-year-old female who was admitted 05/14/20. Patient had vascular surgery [facility] 05/12/2020 and was discharged 05/13/2020. Vascular procedure consisted of left lower extremity angiogram and left SFA balloon angioplasty on 05/12/[address] Mahmood. The discharge plan was to continue aspirin and atorvastatin. Continue Eliquis. Plan to follow-up and get new ABIs in 2 weeks to continue to follow her lower extremity demarcation. [place] dry gangrene toes (left second and third, right second) with Betadine daily. Patient was resting comfortably in bed with no complaints. She reports minimal pain to the feet. ER Note: Patient complains of bilateral leg weakness and numbness onset last night at about 10 PM. States they are like jellyfish . States she is unable to stand and bear weight. She was at [facility] 2 days ago and had a stent placed in her left lower extremity. She said they accessed through the right groin. She says that when she left the hospital yesterday discharge she was able to ambulate. She says her arms feel little weak but she is able to use them. No fever or vomiting. She has had some abdominal discomfort since she was in the hospital. She is a peritoneal dialysis patient, normally does peritoneal dialysis daily. She has not had peritoneal dialysis since . She says on , the day of her surgery, she thinks that she may have forgotten to drain her dialysate. She told them that in surgery and they tried to drain it, but she is uncertain whether they were successful. Because of this she decided not to perform dialysis since then. 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 She has had this for several months, which necessitated her stent 2 days ago. She makes very little urine. She has not had any urinary or fecal incontinence. She denies numbness of the groin. The numbness of her leg starts at the hips bilaterally and goes down to her toes. Review of Systems - Review of Systems Review of systems:: pertinent systems reviewed and negative unless documented below - Constitutional Reports malaise, Reports weakness - Eyes Denies blind spots - ENT Denies abnormal hearing - *Cardiovascular Denies chest pain - *Respiratory Denies shortness of breath - *Gastrointestinal Denies abdominal pain - *Musculoskeletal Reports muscle weakness - Integumentary/Breasts Reports hair loss, Reports change in skin color, Reports dry skin, Reports non-healing lesions, Reports skin ulcer - *Neurologic Reports numbness, Reports tingling/numbness/burning sensations, Reports weakness - Hematologic/Lymphatic Reports easy bruising [facility] History I have reviewed the patient's past medical history: Yes Medical History: Reports:: Anxiety, Diabetes Mellitus Type 2, Hypertension, Peripheral Vascular Disease, Renal Disease, Renal Insufficiency Denies:: Cancer, Diabetes Mellitus Type 1, Internal Pacemaker, MRSA, Seizures *Have you ever received a pneumonia vaccine?: Yes *Have you received a flu vaccine this season?: No Other Medical History: Reports: Anemia, Other. Denies: Blood Transfusion Reaction Laterality Cases: Left: Carpal Tunnel Release Other Surgeries: Yes: Angioplasty (stent placed in LLE.), Cholecystectomy, , Other (Fistula left arm.). No: Pacemaker Amputation: No Fractures: No - *Social History Last grade of school completed: Some college Smoking Status: Never smoker Tobacco Type: cigarettes # Packs/Day (cigarettes): 0 Alcohol Intake: never Substance Use Type: denies use *Occupational Status:: disabled Housing: apartment Household Members: children *Travel in the last 8 weeks: None - Psychiatric History Pschychiatric History:: Reports:: Anxiety Family Hx:: Cancer, Diabetes, Alcoholism Meds Home Medications Medication Instructions Recorded Confirmed Type rocky
[2020-05-16 14:32] LABS: POC Glucose,Bedside 191 (70-110)
--- NOTE | 2020-05-16 15:43 | PC.NURSE ---
Patient had several periods of nausea and vomiting this am, reglan and phenergan added to her medication regimen with good results, pt was able to swallow some oral medications this afternoon, pt oxygen saturations were below 85% at times this shift, pt placed on 2LNC, Dr Dahl consulted on patient this shift, ordered betadine washes to toes daily, no surgical intervention planned at this time, echo completed this shift, vss, will continue to monitor for changes.
[2020-05-16 16:52] LABS: POC Glucose,Bedside 141 (70-110)
--- NOTE | 2020-05-16 19:11 | PC.NURSE ---
report given to elva
[2020-05-16 21:40] LABS: POC Glucose,Bedside 104 (70-110)
[2020-05-17] VITALS: BP 153/50; PULSE 77; PULSE 80; RESP 16; TEMP 36.7; O2SAT 95
[2020-05-17 04:00] VITALS: BP 131/75; PULSE 77; PULSE 80; RESP 17; TEMP 36.7; O2SAT 94
[2020-05-17 05:00] VITALS: BMI 39.2
[2020-05-17 05:00] LABS: POC Glucose,Bedside 169 (70-110)
--- NOTE | 2020-05-17 05:01 | PC.NURSE ---
A&OX4. pt performed peritoneal dialysis, staff assisted with bags and cleanig off peritoneal catheter. pt toes dry gangrene. pt very fatigue and was refusing to do dialysis but after speaking with staff encouraging her to perform she agreed.
[2020-05-17 07:19] LABS: Chloride 99 mmol/L (98-107); Sodium 136 mmol/L (136-145)
[2020-05-17 07:20] LABS: Potassium 3.8 mmoL/L (3.5-5.1)
[2020-05-17 07:23] LABS: Anion Gap 16.8 mEq/L (5-15); Blood Urea Nitrogen 47 mg/dl (7-17); Carbon Dioxide 24 mmol/L (22.0-30.0); Creatinine Clearance Estimated 10 mL/min (50-200); Estimated Glomerular Filt Rate 3 ml/min (>60); GFR (African American) 4 ML/MIN (>60); Glucose 120 mg/dl (74-100)
[2020-05-17 07:25] LABS: Basophils % 0.2 % (0.1-2.0); Eosinophils # 0.5 K/mm3 (0.0-0.4); Eosinophils % 7.5 % (0.1-12.0); Lymphocytes # 1.1 K/mm3 (0.7-4.5); Lymphocytes % 15.5 % (10-50); Mean Corpuscular HGB Conc 30.3 g/dL (31.8-35.4); Mean Corpuscular Hemoglobin 30.2 pg (27.0-31.2); Mean Corpuscular Volume 99.6 fl (81-99); Mean Platelet Volume 9.9 fl (7.4-10.4); Monocytes # 0.4 K/mm3 (0.1-1.0); Monocytes % 5.6 % (1.7-9.3); Neutrophils # 5.1 K/mm3 (1.8-7.8); Neutrophils % 71.2 % (37.0-80.0); Platelet Count 236 K/mm3 (142-424); Red Blood Count 2.62 M/mm3 (4.20-5.40); Red Cell Distribution Width 17.3 % (11.5-17.5); White Blood Count 7.1 K/mm3 (4.8-10.8)
[2020-05-17 07:26] LABS: Calcium 6.6 mg/dl (8.4-10.2)
[2020-05-17 07:34] LABS: Hemoglobin 7.9 g/dL (12.2-16.2)
[2020-05-17 08:00] VITALS: BP 139/77; PULSE 76; PULSE 77; RESP 18; TEMP 36.4; O2SAT 92
--- NOTE | 2020-05-17 08:26 | HMH.CNCARD ---
History of Present Illness Consult date: 05/17/20 Requesting physician: Giuliano Wolfe Chief complaint: leg weakness Additional Medical History:: 1. Chronic kidney disease due to DM, stage V, on peritoneal dialysis since 2018 per patient 2. Diabetes mellitus, type 2 3. Peripheral vascular disease with recent left lower extremity stenting to the affected SFA A. Dry gangrene of the first through third toes of both feet 4. Hypertension A. Echocardiogram, 05/16/2020, 1. Mildly enlarged left atrium, normal left ventricular size, mild concentric left ventricular hypertrophy, visually estimated ejection fraction 55% with no regional wall motion abnormality, grade 1 diastolic dysfunction seen without tissue Doppler evidence of raise left atrial pressure. 2. Thickened and calcified aortic valve with mean gradient across valve of 22 mmHg, valve area 1.36 cm??? represents moderate aortic stenosis, there is no aortic insufficiency. 3. Moderate-sized pericardial effusion without Doppler evidence of tamponade physiology. 4. Mild mitral and moderate tricuspid regurgitation, calculated right ventricular systolic pressure is 50 mmHg. 5. Inferior vena cava is mildly dilated without significant inspiratory collapse. 5. Anxiety 6. Moderate pericardial effusion by echocardiogram, 05/16/20, felt secondary to uremia caused by interruption in PD for 3 days History of present illness: this pt presented to the ed -pt has sig hx of pvd and followed by vascular surg at and has crf on peritoneal dialysis at home - pt presented to ed with inc pain and dec ability to walk-Pt reports weakness in buck legs, pt states my legs feel like jello . Pt reports began having sudden weakness in legs lastnight at 10 pm. Pt reports she had an angioplasty done at on and was discharged home yesterday. Pt reports unable to walk. Upon asssessment pt is slow to move her legs around, attempts to pick legs off the bed without success, pt unable to resist gravity when i lift her legs up of the bed. Pt has weak pulses on doppler noted-pedal and post tib. Patient complains of bilateral leg weakness and numbness onset last night at about 10 PM. States they are like jellyfish . States she is unable to stand and bear weight. She was at [facility] 2 days ago and had a stent placed in her left lower extremity. She said they accessed through the right groin. She says that when she left the hospital yesterday discharge she was able to ambulate. She says her arms feel little weak but she is able to use them. No fever or vomiting. She has had some abdominal discomfort since she was in the hospital. She is a peritoneal dialysis patient, normally does peritoneal dialysis daily. She has not had peritoneal dialysis since . She says on , the day of her surgery, she thinks that she may have forgotten to drain her dialysate. She told them that in surgery and they tried to drain it, but she is uncertain whether they were successful. Because of this she decided not to perform dialysis since then. 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 She has had this for several months, which necessitated her stent 2 days ago. She makes very little urine. She has not had any urinary or fecal incontinence. She denies numbness of the groin. The numbness of her leg starts at the hips bilaterally and goes down to her toes. The above per Dr. Wolfe Cardiology consulted for moderate pericardial effusion on echo. Pt denies any history of cardiac issues and reports having cardiac cath in the past without need for intervention. CKD related to DM. She has been on peritoneal dialysis for 2 yrs. Non-smoker PVD with LLE stenting last week. Dry gangrene of bilateral 1-3 toes. [facility] History Medical History: Reports:: Anxiety, Diabetes Mellitus Type 2, Hypertension, Peripheral Vascular Disease, Renal Disease, Renal Insufficiency D
--- NOTE | 2020-05-17 09:30 | PC.NURSE ---
CALLED PHARMACY FOR INVANZ DOSE
--- NOTE | 2020-05-17 09:44 | HMH.ACPN2 ---
Internal Medicine - PN: Subj *Date: 05/17/20 *Time: 12:28 Interval history: 40-year-old female patient lying in bed resting quietly, she is using her own home dialysis equipment for peritoneal dialysis. She reports that she still is very weak but she is able to weight-bear on the right foot. Encouraged to be out of bed today, she reports she will try. Podiatry has seen and rec: Wound culture left hallux ingrown toenail: MRSA (was on Clinda x 2 weeks) Bilateral foot x-rays and arterial ultrasound done 02/26/2020 reviewed. Patient was sent to vascular due to abnormal ABIs. Vascular studies repeated at . 02/26/20, [facility]: RLE CRICKET 0.60, LLE CRICKET 0.5, RT TBI 0.4, LT TBI 0.2, Diminished pulses, Abnormal waveforms. Moderate arterial disease. 03/30/20, : RLE CRICKET 0.67, LLE CRICKET 0.30, Monophasic waveforms She subsequently underwent a left lower extremity angiogram, left SFA balloon angioplasty on at by Dr. Mahmood. Patient seen and evaluated by myself at the bedside today. She was not having much pain on exam. Can check a new x-rays today bilateral 3 views feet to evaluate for underlying osteomyelitis. I explained that unless she is having active purulence, OM or get septic from her wounds, no surgical intervention planned. Agree with vascular discharge plan from 05/13/2020 as below. The discharge plan was to continue aspirin and atorvastatin. Continue Eliquis. Plan to follow-up with vascular and get new ABIs in 2 weeks to continue to follow her lower extremity demarcation. [place] dry gangrene toes with Betadine daily. No plans for Podiatry surgery. 05/16/20 ECHO: Conclusion 1. Mildly enlarged left atrium, normal left ventricular size, mild concentric left ventricular hypertrophy, visually estimated ejection fraction 55% with no regional wall motion abnormality, grade 1 diastolic dysfunction seen without tissue Doppler evidence of raise left atrial pressure. 2. Thickened and calcified aortic valve with mean gradient across valve of 22 mmHg, valve area 1.36 cm??? represents moderate aortic stenosis, there is no aortic insufficiency. 3. Moderate-sized pericardial effusion without Doppler evidence of tamponade physiology. 4. Mild mitral and moderate tricuspid regurgitation, calculated right ventricular systolic pressure is 50 mmHg. 5. Inferior vena cava is mildly dilated without significant inspiratory collapse. Electronically signed by : Kori Agrawal has seen and rec: 1. Moderate pericardial effusion without cardiac tamponade in a patient with stage V kidney disease on chronic peritoneal dialysis with recent interruption. Pericardial effusion likely secondary to uremia which will slowly resolve with patient's continued peritoneal dialysis. No plans or need for intervention at this time. 2. Chronic kidney disease, peritoneal dialysis 3. Peripheral vascular disease status post recent left SFA intervention, continue Eliquis therapy and follow-up with vascular surgery at upon discharge. 4. Hypertension, continue carvedilol therapy 5. Chronic anemia related to chronic kidney disease Exam Vital signs and Labs for Last 24 Hours: Temp Pulse Resp BP Pulse Ox 97.5 F L 77 18 139/77 92 L 05/17/20 08:00 05/17/20 08:00 05/17/20 08:00 05/17/20 08:00 05/17/20 08:00 Laboratory Results - last 24 hr 05/16/20 09:55: POC Glucose 174 H 05/16/20 11:41: WBC 8.5, RBC 3.20 L, Hgb 9.7 L, Hct 31.2 L, MCV 97.7, MCH 30.3, MCHC 31.0 L, RDW 17.3, Plt Count 246, MPV 9.5, Neut % (Auto) 86.4 H, Lymph % (Auto) 7.1 L, [place] % (Auto) 3.3, Eos % (Auto) 3.0, Baso % (Auto) 0.2, Neut # (Auto) 7.3, Lymph # (Auto) 0.6 L, [place] # (Auto) 0.3, Eos # (Auto) 0.3, Baso # (Auto) 0.0, Total Counted 100, Neutrophils % (Manual) 86 H, Lymphocytes % (Manual) 12, Eosinophils % (Manual) 2, Platelet Estimate Normal, RBC Morphology Normal 05/16/20 11:41: Sodium 137, Potassium 4.4, Chloride 97 L, Carbon Dioxide 24, Anion Gap 20.4 H, BUN 52 H, Cr
--- NOTE | 2020-05-17 10:51 | SW/DCPLANNER ---
Addendum entered by [facility] 05/18/20 13:42: Facilities that can NOT accept patients at this time: [facility], [facility], [facility], [facility], [facility]. I am currently waiting to hear back from Ashley at [facility] regarding availability for this patient. Patient and her brother are aware of situation. Addendum entered by [facility] 05/18/20 12:57: I have revisited with this patient regarding discharge plans. Patient continues to be unsure regarding discharge plans: placement vs home with home health. I have explained to patient that there are no facilities I have spoke with that is willing to accept this patient with their own dialysis machine. However [facility] in [place] in interested in this patient if she is agreeable to receive dialysis in [place]. Patient is agreeable with this and [facility] has stated they would provide this patient with transportation via [facility]. Ashley will contact me back regarding be availability. Patients brother was present in room at time of my visit and stated that he is going to start on patients house tonight making this accessible for her. Patients brother stated that 20/05 care can be provided if placement is not an option. CM is currently working on speaking with Dialysis center in [place], patient, [facility] and . Addendum entered by [facility] 05/17/20 16:36: Patient has stated that she has spoke with her family and they can assist this patient at home, requested home health and a wheelchair. I will set this up at time of discharge if MD and patient are agreeable. Addendum entered by [facility] 05/17/20 14:59: At this time there are no facilities that accept patients with their own dialysis machine: [facility], [facility], [facility], [facility], [facility] and [facility]. I will discuss home health options with this patient. Patient has also mentioned that she has other family involved and they would assist her at home/move in with patient. Addendum entered by [facility] 05/17/20 14:26: [facility] has denied this patient at this time. Addendum entered by [facility] 05/17/20 14:09: Patient information has been faxed to [facility] and [facility]. Addendum entered by Lisa Callaway 05/17/20 13:35: Mariam from [facility] has denied this patient due to dialysis and not having Nephrology currently. I will speak with [facility] and [facility] today as well. Addendum entered by Lisa Callaway 05/17/20 12:26: Mariam from [facility] is currently reviewing this patients information. Original Note: I have spoke with this patient regarding discharge plans. Patient stated that she resides at home with her 11 year old daughter. Patient stated that her daughter does most of the turn supervisor: cleaning, cooking, ect.. Patient stated that she wants to return home with her daughter. I explained different discharge options: placement vs home health. Patient then stated that she did not want to go to placement but knows she needs to....Patient is agreeable to [facility], [facility] or [facility] (in that specific order). PT/OT did evaluate this patient this morning. I will fax patient information to [facility].
--- NOTE | 2020-05-17 11:25 | HMH.PTEV ---
Physical Therapy Evaluation Rehab PT IP Evaluation Start: 05/17/20 08:52 Freq: ONCE Status: Active Protocol: Document 05/17/20 10:15 PHORNE (Rec: 05/17/20 11:25 PHORNE [id number]) Subjective/History History History 40 yowf adm to [facility] with weakness and unable to ambulate. She uses home dialysis due to CKF, had recent stenting in LE due to severe PAD. She lives with daughter at home and is independent at baseline for all activity per her report. She uses a cane for ambulation . Subjective Subjective Pt c/o feeling weak and tired this am. Rehab PT IP Eval Objective Appearance Patient Behavior Appropriate Patient Orientation Person,Place,Time Difficulty following instructions none Speech Pattern Clear Ambulation Patient Able to Ambulate No Balance Ability to Arise Able, uses arms to help Sitting Balance Steady, safe Standing Balance Steady, wide stance Dynamic Sitting Balance Ability Good Dynamic Standing Balance Ability Poor Transfers Bed Transfer Ability Moderate x 1 (50% assist) Chair Transfer Ability Moderate x 1 (50% assist) Sit to Stand Bed Transfer Ability Moderate x 1 (50% assist) Sit to Stand Chair Transfer Ability Moderate x 1 (50% assist) ROM All Extremities PT ROM Status WFL MMT All Extremities PT MMT WFL Rehab PT IP prob,goals,plan Problems Date of Evaluation: 05/17/20 PT IP Problems Bed Mobility,Transfers,Gait Rehab Potential Rehab Potential Good Plan PT Intervention Plan Bed Mobility,Transfers,Gait, Therapeutic Exercise PT Plan Frequency BID Duration LOS Discharge Goals Bed Transfer Ability Minimal x 1 (25% assist) Sit to Stand Chair Transfer Ability Minimal x 1 (25% assist) Ambulation Assistive Device Rolling Walker Ambulation Distance (feet) 10 Discharge Plan PT Discharge Plan Pt is most appropriate for rehab placement at this time and would not be safe to return home unless her mobility significantly improved. G -code Required No Eval Complexity Eval Charge Codes 12638 - Moderate Complexity
--- NOTE | 2020-05-17 11:36 | HMH.OTEV ---
OT Inpatient Evaluation Rehab OT IP Evaluation Start: 05/17/20 08:52 Freq: ONCE Status: Complete Protocol: Document 05/17/20 11:30 [facility] (Rec: 05/17/20 11:36 [facility] [id number]) Rehab OT IP Assessment Subjective History Pt oriented x 3 on arrival. Pt agreeable to engage in therapy evaluation. Pt resting in chair. Pt was admitted via ED on 05/14/20 due to weakness. Pt has a past medical history of PVD, Renal disease, HTN, DM type 2, and anxiety. Pt does complete dialysis at home. Pt also recently had a stent put in LLE at . Pt lives at home with her 11 year old daughter. Pt claims she uses a cane at home during ambulation, but she is independent with all ADLs. Pt is dependent upon her 11 year old daugther to complete IADLs such as cleaning, cooking, etc. Pt will continue to be seen in order to address all deficits. Subjective I just feel like my leg is going to give away. Objective Patient Orientation Person,Place,Birthday Upper Extremity Gross ROM WFL Transfer Training Sit/Stand Transfer Assist Level Moderate x 1 (50% assist) Chair Transfer Ability Moderate x 1 (50% assist) Rehab OT IP prob,goals,plan Problems Date of Evaluation: 05/17/20 OT IP Problems Bed Mobility,Transfers,Gait, Balance,Self care,Safety Rehab Potential Rehab Potential Good Equipment Needs Assistive Devices Straight Cane Plan OT intervention Plan Bed Mobility,Transfers,Gait, Balance,Self care,Safety, Therapeutic Exercise OT Plan Frequency Daily Duration LOS Discharge Goals Bed Mobility Ability Standby Assistance Sit to Stand Chair Transfer Ability Minimal x 1 (25% assist) Chair Transfer Ability Minimal x 1 (25% assist) Chair Transfer Technique Sit to/from Ambulatory Chair Transfer Assistive Devices Rolling Walker Self care skills fully toilet trained,uses utensils to feed self Lower Body Dressing Ability Assistance X1 Up
[2020-05-17 12:00] VITALS: BP 130/66; PULSE 70; PULSE 73; RESP 16; TEMP 37.1; O2SAT 94
[2020-05-17 14:13] LABS: POC Glucose,Bedside 115 (70-110)
[2020-05-17 16:00] VITALS: BP 125/67; PULSE 70; PULSE 78; RESP 16; TEMP 36.3; O2SAT 92
[2020-05-17 16:36] LABS: POC Glucose,Bedside 107 (70-110)
--- NOTE | 2020-05-17 16:59 | PC.NURSE ---
PATIENT SAT IN THE CHAIR FOR SEVERAL HOURS THIS SHIFT. SHE IS A MAX ASSIST BED/CHAIR TRANSFER. SHE COMPLAINS OF PAIN IN FEET WHEN STANDING AND STATES I CAN'T DO IT THE ENTIRE TIME. BETADINE WAS PAINTED ON NECROTIC TOES THIS SHIFT. HER 2ND TOE ON HER LEFT FOOT IS COMPLETELY BLACK ALL THE WAY TO THE BASE AND HAS A WET SOGGY AREA ON THE BOTTOM OF HER FOOT AT THE BASE. SHE HAS HER PERITONEAL DIALYSIS MACHINE AT THE BEDSIDE WHICH SHE MANAGES COMPLETELY ON HER OWN WITHOUT THE NEED OF STAFF ASSISTANCE. CALL LIGHT WITHIN REACH WILL CONTINUE TO MONITOR.
[2020-05-17 20:00] VITALS: BP 124/60; PULSE 68; PULSE 80; RESP 17; TEMP 36.7; O2SAT 92
[2020-05-17 21:30] LABS: POC Glucose,Bedside 109 (70-110)
[2020-05-18] VITALS: BP 115/62; PULSE 70; PULSE 76; RESP 17; TEMP 36.9; O2SAT 94
--- NOTE | 2020-05-18 03:23 | PC.NURSE ---
Late Entry: @ 2119 pt began prepping her peritoneal dialysis machine. Pt performed all functions except for the assistance of hanging of the new bags. Pt prepared the lines herself.
[2020-05-18 04:00] VITALS: BP 116/60; PULSE 74; PULSE 80; RESP 17; TEMP 36.8; O2SAT 97
--- NOTE | 2020-05-18 04:38 | PC.NURSE ---
pt A&OX4. pt denies pain this shift. pt was medicated once for anxiety per MAR this shift. pt has slept deeply for majority of shift.
[2020-05-18 05:00] VITALS: BMI 39.2
[2020-05-18 06:10] LABS: POC Glucose,Bedside 131 (70-110)
[2020-05-18 06:41] LABS: Phosphorous 9.3 mg/dl (2.5-4.5)
[2020-05-18 06:48] LABS: Calcium 6.9 mg/dl (8.4-10.2)
[2020-05-18 08:00] VITALS: BP 118/66; PULSE 78; PULSE 80; RESP 19; TEMP 37.2; O2SAT 92
--- NOTE | 2020-05-18 09:25 | HMH.ACPN2 ---
Internal Medicine - PN: Subj *Date: 05/18/20 *Time: 13:41 Interval history: 40-year-old female patient lying in bed resting quietly, awakens to verbal stimuli. Reports she does feel little bit better today but she still complains of being weak she was up to chair yesterday, explained the importance of physical therapy, sitting up in chair and attempting to walk. Discussed discharge to rehab facility, she reports she will do hemodialysis if necessary to be able to go to rehab. She does report she does not have her home dose of Sevelamer carbonate, discussed with pharmacy and will monitor lab work and adjust accordingly. Cardiology has seen and rec: 1. Moderate pericardial effusion without cardiac tamponade in a patient with stage V kidney disease on chronic peritoneal dialysis with recent interruption. Pericardial effusion likely secondary to uremia which will slowly resolve with patient's continued peritoneal dialysis. No plans or need for intervention at this time. 2. Chronic kidney disease, peritoneal dialysis 3. Peripheral vascular disease status post recent left SFA intervention, continue Eliquis therapy and follow-up with vascular surgery at upon discharge. 4. Hypertension, continue carvedilol therapy 5. Chronic anemia related to chronic kidney disease Exam Vital signs and Labs for Last 24 Hours: Temp Pulse Resp BP Pulse Ox 98.9 F 78 19 118/66 92 L 05/18/20 08:00 05/18/20 08:00 05/18/20 08:00 05/18/20 08:00 05/18/20 08:00 Laboratory Results - last 24 hr 05/17/20 11:50: POC Glucose 115 H 05/17/20 16:23: POC Glucose 107 05/17/20 21:11: POC Glucose 109 05/18/20 05:14: POC Glucose 131 H 05/18/20 06:16: Calcium 6.9 L, Phosphorus 9.3 H I & O for Last 24 hours: Intake & Output 05/15/20 05/16/20 05/17/20 05/18/20 23:59 23:59 23:59 23:59 Intake Total 1373 / 1373 1517 / 1517 2069 / 0 112 / 1121 Output Total 98758 / 69667 450 / 450 Balance -9218 / -9218 1067 / 1067 2069 / 2369 1121 / 1121 Weight 249 lb 1.957 oz 250 lb 2 oz 250 lb 2.042 oz - Constitutional no acute distress, obese, chronically ill appearing - *Routine HEENT Exam ENT: Present: mucous membranes moist. Absent: sinus tenderness - *Routine Neck Exam Present: trachea midline. Absent: tenderness, tracheal deviation - *Routine Respiratory Exam Present: CTA bilaterally. Absent: accessory muscle use - *Routine Cardiovascular Exam Present: RRR, murmur - *Routine Abdominal Exam Present: soft, normoactive bowel sounds, obese. Absent: tenderness, firm - *Routine Extremities Exam Present: pallor. Absent: calf tenderness - *Routine Skin Exam Present: wounds, gangrene Comments: 1st and 2nd toes bilat feet dry gangrene - *Routine Neurological Exam Present: alert, oriented X3. Absent: altered mental status - Routine Psychiatric Exam Present: normal affect, normal thought process Assessment and Plan (1) Chronic renal failure Current visit: Yes Status: Acute Qualifiers: Chronic kidney disease stage: unspecified stage Qualified Code(s): N18.9 - Chronic kidney disease, unspecified Category: Medical Code(s): N18.9 - Chronic kidney disease, unspecified (2) PVD (peripheral vascular disease) Current visit: Yes Status: Acute Category: Medical Code(s): I73.9 - Peripheral vascular disease, unspecified (3) ESRD (end stage renal disease) on dialysis Current visit: No Status: Acute Category: Medical Code(s): N18.6 - End stage renal disease; Z99.2 - Dependence on renal dialysis (4) Obesity (BMI 30-39.9) Current visit: Yes Status: Acute Category: Medical Code(s): E66.9 - Obesity, unspecified (5) Cellulitis and abscess of foot Current visit: Yes Status: Acute Category: Medical Code(s): L03.119 - Cellulitis of unspecified part of limb; L02.619 - Cutaneous abscess of unspecified foot (6) Hypocalcemia Current visit: Yes Status: Acute Category: Medical Code(s):
--- NOTE | 2020-05-18 10:15 | HMH.ACPN ---
Internal Medicine - PN: Subj *Date: 05/18/20 *Time: 10:15 Exam Vital signs and Labs for Last 24 Hours: Temp Pulse Resp BP Pulse Ox 98.9 F 78 19 118/66 92 L 05/18/20 08:00 05/18/20 08:00 05/18/20 08:00 05/18/20 08:00 05/18/20 08:00 Laboratory Results - last 24 hr 05/17/20 11:50: POC Glucose 115 H 05/17/20 16:23: POC Glucose 107 05/17/20 21:11: POC Glucose 109 05/18/20 05:14: POC Glucose 131 H 05/18/20 06:16: Calcium 6.9 L, Phosphorus 9.3 H I & O for Last 24 hours: Intake & Output 05/15/20 05/16/20 05/17/20 05/18/20 23:59 23:59 23:59 23:59 Intake Total 1373 / 1373 1517 / 1517 2069 / 2370 1121 / 1121 Output Total 21883 / 37284 450 / 450 Balance -9218 / -9218 1067 / 1067 2069 / 2370 1121 / 1121 Weight 113 kg 113.455 kg 113.456 kg Assessment and Plan (1) Chronic renal failure Current visit: Yes Status: Acute Qualifiers: Chronic kidney disease stage: unspecified stage Qualified Code(s): N18.9 - Chronic kidney disease, unspecified Category: Medical Code(s): N18.9 - Chronic kidney disease, unspecified (2) PVD (peripheral vascular disease) Current visit: Yes Status: Acute Category: Medical Code(s): I73.9 - Peripheral vascular disease, unspecified (3) ESRD (end stage renal disease) on dialysis Current visit: No Status: Acute Category: Medical Code(s): N18.6 - End stage renal disease; Z99.2 - Dependence on renal dialysis (4) Obesity (BMI 30-39.9) Current visit: Yes Status: Acute Category: Medical Code(s): E66.9 - Obesity, unspecified (5) Cellulitis and abscess of foot Current visit: Yes Status: Acute Category: Medical Code(s): L03.119 - Cellulitis of unspecified part of limb; L02.619 - Cutaneous abscess of unspecified foot (6) Hypocalcemia Current visit: Yes Status: Acute Category: Medical Code(s): E83.51 - Hypocalcemia (7) Cardiomegaly Current visit: Yes Status: Acute Category: Medical Code(s): I51.7 - Cardiomegaly (8) Pericardial effusion without cardiac tamponade Current visit: Yes Status: Acute Category: Medical Code(s): I31.3 - Pericardial effusion (noninflammatory) The patient's infection will respond to the chosen ABx?: Yes Is the patient receiving the right drug, dose, and route?: Yes Could a more targeted ABx be ordered?: No
[2020-05-18 12:00] VITALS: BP 113/52; PULSE 80; RESP 19; TEMP 36.6; O2SAT 94
[2020-05-18 12:05] LABS: POC Glucose,Bedside 75 (70-110)
[2020-05-18 16:00] VITALS: BP 139/74; PULSE 80; PULSE 84; RESP 16; TEMP 36.9; O2SAT 90
[2020-05-18 16:36] LABS: POC Glucose,Bedside 72 (70-110)
--- NOTE | 2020-05-18 17:59 | PC.NURSE ---
Was up to the chair for approximately 4 hours this morning. Max assist when returning back to bed. She has slept the majority of the shift waking up only to eat and take meds. Has requested ativan around the clock due to anxiety. States I'm nervous about everything that is going on , referring to where she will dc to when questioned further. Peritoneal dialysis was completed completely by patient by 0900 this morning, she stated total UF was 3285 mls (documented in I's & O's). Betadine applied to toes this morning per order. Pt tolerated well. IV to rt hand patent and infusing NS @ 50 mls/hr. Safety measures in place. No further complaints or requests at this time.
--- NOTE | 2020-05-18 19:11 | PC.NURSE ---
report given to chan
[2020-05-18 20:00] VITALS: BP 142/72; PULSE 80; RESP 18; TEMP 36.4; O2SAT 98
[2020-05-18 21:25] LABS: POC Glucose,Bedside 80 (70-110)
[2020-05-19] VITALS (8 sets, daily range): BP systolic 118–148; BP diastolic 44–88; PULSE 75–90; RESP 16–20; TEMP 36.6–36.9; O2SAT 90–98; BMI 38.9
--- NOTE | 2020-05-19 02:48 | PC.NURSE ---
initial assessment, BLE pulses per doppler, warm to touch, cap refill less than 3 seconds, necrotic toes
--- NOTE | 2020-05-19 02:50 | PC.NURSE ---
pt stated that she slept through starting her last dialysis, and that it was too late to start it now
--- NOTE | 2020-05-19 05:23 | PC.NURSE ---
initial assessment, fistula LUE, both thrill and bruit present
[2020-05-19 05:36] LABS: POC Glucose,Bedside 63 (70-110)
--- NOTE | 2020-05-19 05:52 | PC.NURSE ---
Addendum entered by Anjelica Stacy RN 05/19/20 06:31: 0630 FSBS 84 Addendum entered by Anjelica Stacy RN 05/19/20 06:07: FSBS rechecked at 0559 with result of 69, additional orange juice and snack given Original Note: 05 FSBS was 63, pt conscious, oriented, no diaphoresis or tremors noted, orange juice given
[2020-05-19 06:11] LABS: Basophils % 0.1 % (0.1-2.0); Eosinophils # 0.7 K/mm3 (0.0-0.4); Eosinophils % 8.5 % (0.1-12.0); Hematocrit 26.8 % (37.0-47.0); Hemoglobin 8.6 g/dL (12.2-16.2); Lymphocytes # 1.1 K/mm3 (0.7-4.5); Lymphocytes % 13.4 % (10-50); Mean Corpuscular HGB Conc 32.1 g/dL (31.8-35.4); Mean Corpuscular Hemoglobin 30.8 pg (27.0-31.2); Mean Platelet Volume 10.2 fl (7.4-10.4); Monocytes # 0.5 K/mm3 (0.1-1.0); Monocytes % 6.3 % (1.7-9.3); Neutrophils % 71.6 % (37.0-80.0); Platelet Count 225 K/mm3 (142-424); Red Blood Count 2.79 M/mm3 (4.20-5.40); Red Cell Distribution Width 16.8 % (11.5-17.5); White Blood Count 8.4 K/mm3 (4.8-10.8)
[2020-05-19 06:21] LABS: POC Glucose,Bedside 69 (70-110)
[2020-05-19 06:35] LABS: Chloride 97 mmol/L (98-107); Sodium 134 mmol/L (136-145)
[2020-05-19 06:36] LABS: POC Glucose,Bedside 84 (70-110)
[2020-05-19 06:36] LABS: Potassium 4.1 mmoL/L (3.5-5.1)
[2020-05-19 06:38] LABS: Albumin Level 2.4 g/dl (3.5-5.0); Albumin/Globulin Ratio 0.9 (1.1-1.8); Alkaline Phosphatase 79 U/L (38-126); Anion Gap 16.1 mEq/L (5-15); Aspartate Amino Transferase 14 U/L (14-36); Bilirubin,Total 0.6 mg/dl (0.2-1.3); Blood Urea Nitrogen 44 mg/dl (7-17); Carbon Dioxide 25 mmol/L (22.0-30.0); Creatinine Clearance Estimated 11 mL/min (50-200); Estimated Glomerular Filt Rate 3 ml/min (>60); GFR (African American) 4 ML/MIN (>60); Globulin 2.7 g/dL (1.3-3.2); Total Protein,Serum 5.1 g/dl (6.3-8.2)
[2020-05-19 06:39] LABS: Calcium 7.2 mg/dl (8.4-10.2); Glucose 58 mg/dl (74-100)
[2020-05-19 06:40] LABS: Alanine Aminotransferase < 4 U/L (12-78)
[2020-05-19 06:57] LABS: Phosphorous 8.9 mg/dl (2.5-4.5)
--- NOTE | 2020-05-19 08:22 | HMH.ORTHPN ---
Subjective Date: 05/19/20 Time: 07:55 Principal diagnosis: B/L toe gangrene Interval history: Ms. Wright is a 40-year-old female who was admitted 05/14/20. Patient had vascular surgery [facility] 05/12/2020 and was discharged 05/13/2020. Vascular procedure consisted of left lower extremity angiogram and left SFA balloon angioplasty on 05/12/[address] Mahmood. The discharge plan was to continue aspirin and atorvastatin. Continue Eliquis. Plan to follow-up and get new ABIs in 2 weeks to continue to follow her lower extremity demarcation. [place] dry gangrene toes (left second and third, right second) with Betadine daily. Patient was resting comfortably in bed with no foot complaints today. She reports feeling tired and not wanting to move or do anything. PN: Obj Ex Vital signs: Temp Pulse Resp BP Pulse Ox 98.3 F 86 18 118/70 96 05/19/20 04:00 05/19/20 04:00 05/19/20 04:00 05/19/20 04:00 05/19/20 04:00 - Constitutional no acute distress, chronically ill appearing - Routine HEENT Exam Head: Present: normocephalic - Routine Neck Exam Present: supple - Routine Respiratory Exam Absent: respiratory distress - Routine Cardiovascular Exam Present: RRR - Routine Abdominal Exam Present: soft - Routine Extremities Exam Present: edema. Absent: normal capillary refill, amputation - Detailed Lower Extremity Exam Comments: LEFT: Distal toe erythema. Dry gangrene to left hallux toe tip, entire 2nd toe, dorsal 3rd toe proximal to nail bed, left medial heel. The wounds are all dry, no drainage or purulence expressed. No malodor, no ascending cellulitis noted. Toes all dusky. Delayed CFT secondary to PAD. RIGHT: Right foot has dry gangrene as well. Right hallux just lateral to toenail has gangrene. Dry gangrene to 2nd toes around PIPJ and btwn 4-5th toes. No purulence, malodor or ascending cellulitis noted. CFT delayed. Non palpable pedal pulse. No calf or thigh pain noted b/l. Toenails dystrophic. - Routine Skin Exam Present: dry, gangrene Progress Note: A&P (1) Chronic renal failure Status: Acute Current Visit: Yes (2) PVD (peripheral vascular disease) Status: Acute Current Visit: Yes (3) ESRD (end stage renal disease) on dialysis Status: Acute Current Visit: No (4) Obesity (BMI 30-39.9) Status: Acute Current Visit: Yes (5) Cellulitis and abscess of foot Status: Acute Current Visit: Yes (6) Hypocalcemia Status: Acute Current Visit: Yes (7) Cardiomegaly Status: Acute Current Visit: Yes (8) Pericardial effusion without cardiac tamponade Status: Acute Current Visit: Yes Assessment and Plan for All Diagnoses:: B/L toe gangrene, PAD, DM: Wound culture 02/25/20, left hallux ingrown toenail: MRSA (was on Clinda x 2 weeks) Bilateral foot x-rays and arterial ultrasound done 02/26/2020 reviewed. Patient was sent to vascular due to abnormal ABIs. Vascular studies repeated at . 02/26/20, [facility]: RLE CRICKET 0.60, LLE CRICKET 0.5, RT TBI 0.4, LT TBI 0.2, Diminished pulses, Abnormal waveforms. Moderate arterial disease. 03/30/20, : RLE CRICKET 0.67, LLE CRICKET 0.30, Monophasic waveforms She subsequently underwent a left lower extremity angiogram, left SFA balloon angioplasty on at by Dr. Mahmood. Patient seen and evaluated by myself at the bedside today. She was very sleepy and tired. She did not complain of any new pain or symptoms to the feet. She did not have pain on exam. Stable dry gangrene. I explained that unless she is having active purulence, OM or get septic from her wounds, no surgical intervention planned. Agree with vascular discharge plan from 05/13/2020 as below, and follow-up with them in 1-2 weeks. The discharge plan was to continue aspirin and atorvastatin. Continue Eliquis. Plan to follow-up with vascular and get new ABIs in 1-2 weeks to continue to follow her lower extremity demarcation. [place] dry gangrene toes with Betadine daily. No plans for Podiatry surg
--- NOTE | 2020-05-19 09:33 | P.PN_ITS ---
Internal Medicine - PN: Subj *Date: 05/19/20 *Time: 09:33 Exam Vital signs and Labs for Last 24 Hours: Temp Pulse Resp BP Pulse Ox 98.4 F 86 19 118/66 92 L 05/19/20 08:00 05/19/20 08:00 05/19/20 08:00 05/19/20 08:00 05/19/20 08:00 Laboratory Results - last 24 hr 05/18/20 11:56: POC Glucose 75 05/18/20 16:19: POC Glucose 72 05/18/20 20:02: POC Glucose 80 05/19/20 05:29: POC Glucose 63 L 05/19/20 05:46: WBC 8.4, RBC 2.79 L, Hgb 8.6 L, Hct 26.8 L, MCV 96.0, MCH 30.8, MCHC 32.1, RDW 16.8, Plt Count 225, MPV 10.2, Neut % (Auto) 71.6, Lymph % (Auto) 13.4, [place] % (Auto) 6.3, Eos % (Auto) 8.5, Baso % (Auto) 0.1, Neut # (Auto) 6.0, Lymph # (Auto) 1.1, [place] # (Auto) 0.5, Eos # (Auto) 0.7 H, Baso # (Auto) 0.0 05/19/20 05:46: Sodium 134 L, Potassium 4.1, Chloride 97 L, Carbon Dioxide 25, Anion Gap 16.1 H, BUN 44 H, Creatinine 12.80 H, Estimated Creat Clear 11, Estimated GFR 3 L*, Est GFR ( Amer) 4 L*, Glucose 58 L, Calcium 7.2 L, Total Bilirubin 0.6, AST 14, ALT < 4 L, Alkaline Phosphatase 79, Total Protein 5.1 L, Albumin 2.4 L, Globulin 2.7, Albumin/Globulin Ratio 0.9 L 05/19/20 05:46: Phosphorus 8.9 H 05/19/20 06:00: POC Glucose 69 L 05/19/20 06:29: POC Glucose 84 I & O for Last 24 hours: Intake & Output 05/16/20 05/17/20 05/18/20 05/19/20 23:59 23:59 23:59 23:59 Intake Total 1517 / 1517 2070 / 2370 2137 / 2257 1042 / 1042 Output Total 450 / 450 3285 / 3285 Balance 1067 / 1067 2069 -1148 / -1028 1042 / 1042 Weight 113 kg 113.455 kg 113.456 kg 112.548 kg Assessment and Plan (1) Chronic renal failure Current visit: Yes Status: Acute Qualifiers: Chronic kidney disease stage: unspecified stage Qualified Code(s): N18.9 - Chronic kidney disease, unspecified Category: Medical Code(s): N18.9 - Chronic kidney disease, unspecified (2) PVD (peripheral vascular disease) Current visit: Yes Status: Acute Category: Medical Code(s): I73.9 - Peripheral vascular disease, unspecified (3) ESRD (end stage renal disease) on dialysis Current visit: No Status: Acute Category: Medical Code(s): N18.6 - End stage renal disease; Z99.2 - Dependence on renal dialysis (4) Obesity (BMI 30-39.9) Current visit: Yes Status: Acute Category: Medical Code(s): E66.9 - Obesity, unspecified (5) Cellulitis and abscess of foot Current visit: Yes Status: Acute Category: Medical Code(s): L03.119 - Cellulitis of unspecified part of limb; L02.619 - Cutaneous abscess of unspecified foot (6) Hypocalcemia Current visit: Yes Status: Acute Category: Medical Code(s): E83.51 - Hypocalcemia (7) Cardiomegaly Current visit: Yes Status: Acute Category: Medical Code(s): I51.7 - Cardiomegaly (8) Pericardial effusion without cardiac tamponade Current visit: Yes Status: Acute Category: Medical Code(s): I31.3 - Pericardial effusion (noninflammatory) The patient's infection will respond to the chosen ABx?: Yes Is the patient receiving the right drug, dose, and route?: Yes Could a more targeted ABx be ordered?: No
[2020-05-19 13:28] LABS: POC Glucose,Bedside 66 (70-110)
[2020-05-19 13:28] LABS: POC Glucose,Bedside 71 (70-110)
[2020-05-19 13:28] LABS: POC Glucose,Bedside 65 (70-110)
[2020-05-19 13:50] LABS: Adenovirus,PCR Not Detected (NotDetected); Bordetella Pertussis Not Detected (NotDetected); Chlamydophila Pneumoniae, PCR Not Detected (NotDetected); Coronavirus 19, PCR Not Detected (NotDetected); Coronavirus 229E Not Detected (NotDetected); Coronavirus NL63 Not Detected (NotDetected); Coronavirus OC43 Not Detected (NotDetected); Coronovirus HKU1,PCR Not Detected (NotDetected); Human Metapneumovirus Not Detected (NotDetected); Influenza A, PCR Not Detected (NotDetected); Influenza AH1, 2009 Not Detected (NotDetected); Influenza AH1, PCR Not Detected (NotDetected); Influenza AH3,PCR Not Detected (NotDetected); Influenza B, PCR Not Detected (NotDetected); Mycoplasma Pneumoniae, PCR Not Detected (NotDected); Parainfluenza 1, PCR Not Detected (NotDetected); Parainfluenza 2, PCR Not Detected (NotDetected); Parainfluenza 3, PCR Not Detected (NotDetected); Parainfluenza 4, PCR Not Detected (NotDetected); Respiratory Syncytial Virus Not Detected (NotDetected); Rhinovirus/Enterovirus Not Detected (NotDetected)
[2020-05-19 16:20] LABS: POC Glucose,Bedside 65 (70-110)
[2020-05-19 16:20] LABS: POC Glucose,Bedside 71 (70-110)
[2020-05-19 16:20] LABS: POC Glucose,Bedside 68 (70-110)
--- NOTE | 2020-05-19 17:28 | PC.NURSE ---
Pt has rested in bed this shift. Glucose has ran low in the 60's all day. She has had pudding, pepsi, orange juice, etc... in an attempt to keep glucose wnl. Toes were painted w/betadine this morning. PT called this nurse into the room this afternoon reporting her toe was bleeding. Second toe on left foot was oozing blood. Clean gauze and pressure applied for approx 5 min and bleeding stopped. Brother brought in more dialysis supplies for pt to perform peritoneal dialysis. Will continue to monitor.
--- NOTE | 2020-05-19 18:20 | HMH.ACPN2 ---
Internal Medicine - PN: Subj *Date: 05/19/20 *Time: 18:20 Interval history: uneventful evening case management is looking at placement esrd on pd Ms. Wright is a 40-year-old female who was admitted 05/14/20. Patient had vascular surgery [facility] 05/12/2020 and was discharged 05/13/2020. Vascular procedure consisted of left lower extremity angiogram and left SFA balloon angioplasty on 05/12/[address] Mahmood. The discharge plan was to continue aspirin and atorvastatin. Continue Eliquis. Plan to follow-up and get new ABIs in 2 weeks to continue to follow her lower extremity demarcation. [place] dry gangrene toes (left second and third, right second) with Betadine daily. Patient was resting comfortably in bed with no foot complaints today. She reports feeling tired and not wanting to move or do anything. per podiatry Exam Vital signs and Labs for Last 24 Hours: Temp Pulse Resp BP Pulse Ox 98.5 F 83 20 148/62 H 96 05/19/20 16:00 05/19/20 16:00 05/19/20 16:00 05/19/20 16:00 05/19/20 16:00 Laboratory Results - last 24 hr 05/18/20 20:02: POC Glucose 80 05/19/20 05:29: POC Glucose 63 L 05/19/20 05:46: WBC 8.4, RBC 2.79 L, Hgb 8.6 L, Hct 26.8 L, MCV 96.0, MCH 30.8, MCHC 32.1, RDW 16.8, Plt Count 225, MPV 10.2, Neut % (Auto) 71.6, Lymph % (Auto) 13.4, [place] % (Auto) 6.3, Eos % (Auto) 8.5, Baso % (Auto) 0.1, Neut # (Auto) 6.0, Lymph # (Auto) 1.1, [place] # (Auto) 0.5, Eos # (Auto) 0.7 H, Baso # (Auto) 0.0 05/19/20 05:46: Sodium 134 L, Potassium 4.1, Chloride 97 L, Carbon Dioxide 25, Anion Gap 16.1 H, BUN 44 H, Creatinine 12.80 H, Estimated Creat Clear 11, Estimated GFR 3 L*, Est GFR ( Amer) 4 L*, Glucose 58 L, Calcium 7.2 L, Total Bilirubin 0.6, AST 14, ALT < 4 L, Alkaline Phosphatase 79, Total Protein 5.1 L, Albumin 2.4 L, Globulin 2.7, Albumin/Globulin Ratio 0.9 L 05/19/20 05:46: Phosphorus 8.9 H 05/19/20 06:00: POC Glucose 69 L 05/19/20 06:29: POC Glucose 84 05/19/20 10:59: POC Glucose 66 L 05/19/20 11:24: POC Glucose 65 L 05/19/20 13:09: POC Glucose 71 05/19/20 13:45: Chlamy pneumoniae PCR Not detected, Adenovirus (PCR) Not detected, B. pertussis DNA (PCR) Not detected, Coronavirus OC43 (PCR) Not detected, Coronavirus HKU1 (PCR) Not detected, Coronavirus 229E (PCR) Not detected, COVID-19 PCR Not detected, Coronavirus NL63 (PCR) Not detected, Human Metapneumovir PCR Not detected, Influenza A (H1) PCR Not detected, Influ A (H1N1/09) PCR Not detected, Influenza A (H3) PCR Not detected, Influenza Type A (PCR) Not detected, Influenza Type B (PCR) Not detected, M. pneumoniae (PCR) Not detected, Parainfluenza 1 (PCR) Not detected, Parainfluenza 2 (PCR) Not detected, Parainfluenza 3 (PCR) Not detected, Parainfluenza 4 (PCR) Not detected, RSV (PCR) Not detected, Entero/Rhino (PCR) Not detected 05/19/20 15:15: POC Glucose 65 L 05/19/20 15:44: POC Glucose 68 L 05/19/20 16:11: POC Glucose 71 I & O for Last 24 hours: Intake & Output 05/16/20 05/17/20 05/18/20 05/19/20 23:59 23:59 23:59 23:59 Intake Total 1517 / 1517 2069 / 2251786 Output Total 450 / 450 3285 / 3285 Balance 1067 / 1067 2069 -1148 / -1028 1786 Weight 249 lb 1.957 oz 250 lb 2 oz 250 lb 2.042 oz 248 lb 2 oz - Constitutional no acute distress, cooperative - *Routine HEENT Exam Head: Present: normocephalic, atraumatic Eye: Absent: conjunctival icterus ENT: Present: mucous membranes moist - *Routine Neck Exam Present: supple - *Routine Respiratory Exam Present: CTA bilaterally. Absent: accessory muscle use, respiratory distress - *Routine Cardiovascular Exam Present: RRR. Absent: rubs - *Routine Abdominal Exam Present: soft. Absent: tenderness - *Routine Extremities Exam Comments: gangrenous changes bilat feet - *Routine Skin Exam Present: intact. Absent: cyanosis, jaundice - *Routine Neurological Exam Present: alert, oriented X3 Assessment and Plan (1) Chronic renal failure Current visit: Yes Statu
[2020-05-19 18:54] LABS: POC Glucose,Bedside 77 (70-110)
[2020-05-19 20:58] LABS: POC Glucose,Bedside 83 (70-110)
--- NOTE | 2020-05-19 23:46 | PC.NURSE ---
Pt initiated peritoneal dialysis. RN's only assistance was to lift diasylate bags onto pole and machine for pt. Pt then performed all connections and manipulation of her dialysis machine.
[2020-05-20] VITALS (9 sets, daily range): BP systolic 105–147; BP diastolic 55–80; PULSE 60–85; RESP 16–18; TEMP 36.4–36.9; O2SAT 89–95; BMI 39.9
[2020-05-20 05:47] LABS: POC Glucose,Bedside 105 (70-110)
[2020-05-20 06:25] LABS: Basophils % 0.2 % (0.1-2.0); Eosinophils # 0.6 K/mm3 (0.0-0.4); Eosinophils % 7.1 % (0.1-12.0); Hematocrit 28.3 % (37.0-47.0); Hemoglobin 8.7 g/dL (12.2-16.2); Lymphocytes # 1.3 K/mm3 (0.7-4.5); Mean Corpuscular HGB Conc 30.8 g/dL (31.8-35.4); Mean Corpuscular Hemoglobin 30.2 pg (27.0-31.2); Mean Corpuscular Volume 98.2 fl (81-99); Mean Platelet Volume 9.1 fl (7.4-10.4); Monocytes # 0.5 K/mm3 (0.1-1.0); Monocytes % 5.8 % (1.7-9.3); Neutrophils # 6.3 K/mm3 (1.8-7.8); Neutrophils % 71.8 % (37.0-80.0); Platelet Count 225 K/mm3 (142-424); Red Blood Count 2.88 M/mm3 (4.20-5.40); Red Cell Distribution Width 16.4 % (11.5-17.5); White Blood Count 8.8 K/mm3 (4.8-10.8)
[2020-05-20 06:40] LABS: Chloride 96 mmol/L (98-107); Potassium 4.2 mmoL/L (3.5-5.1); Sodium 134 mmol/L (136-145)
[2020-05-20 06:42] LABS: Blood Urea Nitrogen 46 mg/dl (7-17); Creatinine Clearance Estimated 11 mL/min (50-200); Estimated Glomerular Filt Rate 3 ml/min (>60); GFR (African American) 4 ML/MIN (>60)
[2020-05-20 06:43] LABS: Alanine Aminotransferase 4 U/L (12-78); Albumin Level 2.5 g/dl (3.5-5.0); Alkaline Phosphatase 78 U/L (38-126); Anion Gap 16.2 mEq/L (5-15); Aspartate Amino Transferase 17 U/L (14-36); Bilirubin,Total 0.5 mg/dl (0.2-1.3); Calcium 7.3 mg/dl (8.4-10.2); Carbon Dioxide 26 mmol/L (22.0-30.0); Globulin 2.6 g/dL (1.3-3.2); Glucose 88 mg/dl (74-100); Total Protein,Serum 5.1 g/dl (6.3-8.2)
[2020-05-20 08:15] LABS: Hepatitis B Surface Antigen Negative (Negative)
[2020-05-20 10:06] LABS: Hepatitis B Core Antibody IgM Negative (Negative); Hepatitis C Antibody <0.1 s/co ratio (0.0-0.9)
[2020-05-20 12:14] LABS: POC Glucose,Bedside 92 (70-110)
[2020-05-20 16:21] LABS: POC Glucose,Bedside 77 (70-110)
--- NOTE | 2020-05-20 18:38 | HMH.ACPN2 ---
Internal Medicine - PN: Subj *Date: 05/20/20 *Time: 18:38 Interval history: Nursing staff relays an uneventful evening. Options for placement are underway. End-stage renal disease on peritoneal dialysis. Patient has global weakness. She has a flat affect. Is in no acute distress. Exam Vital signs and Labs for Last 24 Hours: Temp Pulse Resp BP Pulse Ox 97.7 F 73 18 128/70 92 L 05/20/20 16:00 05/20/20 16:00 05/20/20 16:00 05/20/20 16:00 05/20/20 16:00 Laboratory Results - last 24 hr 05/19/20 05:46: Hep Bs Antigen Negative, Hep B Core IgM Ab Negative, Hepatitis C Antibody <0.1 05/19/20 18:48: POC Glucose 77 05/19/20 20:49: POC Glucose 83 05/20/20 05:37: POC Glucose 105 05/20/20 05:50: WBC 8.8, RBC 2.88 L, Hgb 8.7 L, Hct 28.3 L, MCV 98.2, MCH 30.2, MCHC 30.8 L, RDW 16.4, Plt Count 225, MPV 9.1, Neut % (Auto) 71.8, Lymph % (Auto) 15.0, [place] % (Auto) 5.8, Eos % (Auto) 7.1, Baso % (Auto) 0.2, Neut # (Auto) 6.3, Lymph # (Auto) 1.3, [place] # (Auto) 0.5, Eos # (Auto) 0.6 H, Baso # (Auto) 0.0 05/20/20 05:50: Sodium 134 L, Potassium 4.2, Chloride 96 L, Carbon Dioxide 26, Anion Gap 16.2 H, BUN 46 H, Creatinine 12.30 H, Estimated Creat Clear 11, Estimated GFR 3 L*, Est GFR ( Amer) 4 L*, Glucose 88, Calcium 7.3 L, Total Bilirubin 0.5, AST 17, ALT 4 L, Alkaline Phosphatase 78, Total Protein 5.1 L, Albumin 2.5 L, Globulin 2.6, Albumin/Globulin Ratio 1.0 L 05/20/20 11:56: POC Glucose 92 05/20/20 16:13: POC Glucose 77 I & O for Last 24 hours: Intake & Output 05/17/20 05/18/20 05/19/20 05/20/20 23:59 23:59 23:59 23:59 Intake Total 2069 2137 / 2257 178 / 2414 1337 / 1337 Output Total 3285 / 3285 Balance 2069 -1148 / -1028 1787 / 2414 1337 / 1337 Weight 250 lb 2 oz 250 lb 2.042 oz 248 lb 2 oz 254 lb 4 oz - Constitutional no acute distress, obese, somnolent - *Routine HEENT Exam Head: Present: normocephalic Eye: Absent: conjunctival icterus ENT: Present: mucous membranes moist - *Routine Neck Exam Present: supple - *Routine Respiratory Exam Present: CTA bilaterally. Absent: accessory muscle use - *Routine Cardiovascular Exam Present: RRR, murmur - *Routine Abdominal Exam Present: soft, obese - *Routine Extremities Exam Absent: cyanosis Comments: Gangrenous changes of the feet, without change. - *Routine Skin Exam Absent: jaundice - *Routine Neurological Exam Present: alert - Routine Psychiatric Exam Present: depressed Assessment and Plan (1) Chronic renal failure Current visit: Yes Status: Acute Qualifiers: Chronic kidney disease stage: unspecified stage Qualified Code(s): N18.9 - Chronic kidney disease, unspecified Category: Medical Code(s): N18.9 - Chronic kidney disease, unspecified (2) PVD (peripheral vascular disease) Current visit: Yes Status: Acute Category: Medical Code(s): I73.9 - Peripheral vascular disease, unspecified (3) ESRD (end stage renal disease) on dialysis Current visit: No Status: Acute Category: Medical Code(s): N18.6 - End stage renal disease; Z99.2 - Dependence on renal dialysis (4) Obesity (BMI 30-39.9) Current visit: Yes Status: Acute Category: Medical Code(s): E66.9 - Obesity, unspecified (5) Cellulitis and abscess of foot Current visit: Yes Status: Acute Category: Medical Code(s): L03.119 - Cellulitis of unspecified part of limb; L02.619 - Cutaneous abscess of unspecified foot (6) Hypocalcemia Current visit: Yes Status: Acute Category: Medical Code(s): E83.51 - Hypocalcemia (7) Cardiomegaly Current visit: Yes Status: Acute Category: Medical Code(s): I51.7 - Cardiomegaly (8) Pericardial effusion without cardiac tamponade Current visit: Yes Status: Acute Category: Medical Code(s): I31.3 - Pericardial effusion (noninflammatory)
--- NOTE | 2020-05-20 19:12 | PC.NURSE ---
report given to elva
--- NOTE | 2020-05-20 20:30 | PC.NURSE ---
During this nurses initial assessment at 2014, this nurse noted that the pt's peritoneal dialysis dressing was missing. When asked about the dressing and whether something typically goes on the site the pt stated yeah, but I havent been given anything since I have been here. This nurse then asked the pt what she typically used and she stated It's like a band-aid but a gauze material. This nurse then educated the pt on the importance of keeping the site covered with clean dressings to prevent any infections and suggested that the pt's family bring in the appropriate dressing that she has been using at home. Pt verbalized understanding and stated that she will notify her family member in the morning.
[2020-05-20 21:06] LABS: POC Glucose,Bedside 80 (70-110)
[2020-05-21] VITALS (7 sets, daily range): BP systolic 110–153; BP diastolic 48–82; PULSE 74–83; RESP 16–18; TEMP 36.4–36.6; O2SAT 91–95; BMI 40.5
--- NOTE | 2020-05-21 04:05 | PC.NURSE ---
Pt has rested intermittently t/o this shift. Pt stated she was anxious and asked for her ativan this evening. Ativan administered per MAR. When pt was moving to sit on the side of her bed, the dressing from previous skin tear on second toe on right foot began bleeding again. This nurse changed the dressing of ABD pad and gauze pads with micropore tape. Dressing remains CDI. Dorsalis pedis pulses located with doppler. +1 pulse located on R foot and +2 pulse located on L foot. Pt was reminded at 2230 for her to perform her dialysis. Pt performed all care except for hanging the bags which this nurse performed. Pt was seen scratching her skin with force with a soft bristle brush. When asked if she wanted to bathe to maybe help with the pruritus, pt declined. This nurse suggested lotion or powder to help, and pt stated nothing helps, its because of the phosphorus . Pt was then educated on the importance of maintaining skin intergrity and that she shouldn't use items to scratch at her skin constantly with such pressure. Pt verbalized understanding. Pt has since rested well. Call light is within reach, along with all other safety measures. No other complaints at this time, will continue to monitor.
[2020-05-21 05:25] LABS: POC Glucose,Bedside 112 (70-110)
[2020-05-21 06:44] LABS: Chloride 98 mmol/L (98-107); Potassium 4.2 mmoL/L (3.5-5.1); Sodium 132 mmol/L (136-145)
[2020-05-21 06:46] LABS: Blood Urea Nitrogen 44 mg/dl (7-17); Creatinine Clearance Estimated 6 mL/min (50-200); Estimated Glomerular Filt Rate 4 ml/min (>60); GFR (African American) 5 ML/MIN (>60)
[2020-05-21 06:47] LABS: Alanine Aminotransferase 6 U/L (12-78); Albumin Level 2.2 g/dl (3.5-5.0); Albumin/Globulin Ratio 0.8 (1.1-1.8); Alkaline Phosphatase 62 U/L (38-126); Anion Gap 14.2 mEq/L (5-15); Aspartate Amino Transferase 21 U/L (14-36); Bilirubin,Total 0.6 mg/dl (0.2-1.3); Calcium 7.1 mg/dl (8.4-10.2); Carbon Dioxide 24 mmol/L (22.0-30.0); Globulin 2.6 g/dL (1.3-3.2); Glucose 89 mg/dl (74-100); Total Protein,Serum 4.8 g/dl (6.3-8.2)
[2020-05-21 07:27] LABS: Basophils % 0.3 % (0.1-2.0); Eosinophils # 0.8 K/mm3 (0.0-0.4); Eosinophils % 8.5 % (0.1-12.0); Hematocrit 27.1 % (37.0-47.0); Hemoglobin 8.5 g/dL (12.2-16.2); Lymphocytes # 1.5 K/mm3 (0.7-4.5); Lymphocytes % 15.9 % (10-50); Mean Corpuscular HGB Conc 31.4 g/dL (31.8-35.4); Mean Corpuscular Hemoglobin 30.5 pg (27.0-31.2); Mean Corpuscular Volume 97.1 fl (81-99); Mean Platelet Volume 9.9 fl (7.4-10.4); Monocytes # 0.7 K/mm3 (0.1-1.0); Monocytes % 7.6 % (1.7-9.3); Neutrophils # 6.4 K/mm3 (1.8-7.8); Neutrophils % 67.7 % (37.0-80.0); Platelet Count 204 K/mm3 (142-424); Red Blood Count 2.79 M/mm3 (4.20-5.40); Red Cell Distribution Width 16.5 % (11.5-17.5); White Blood Count 9.5 K/mm3 (4.8-10.8)
--- NOTE | 2020-05-21 08:56 | HMH.ACPN2 ---
Internal Medicine - PN: Subj *Date: 05/21/20 *Time: 08:56 Interval history: doing better - injured toe - awaiting ecf placement Exam Vital signs and Labs for Last 24 Hours: Temp Pulse Resp BP Pulse Ox 97.7 F 74 16 120/54 L 91 L 05/21/20 07:47 05/21/20 07:47 05/21/20 07:47 05/21/20 07:47 05/21/20 07:47 Laboratory Results - last 24 hr 05/19/20 05:46: Hep Bs Antigen Negative, Hep B Core IgM Ab Negative, Hepatitis C Antibody <0.1 05/20/20 11:56: POC Glucose 92 05/20/20 16:13: POC Glucose 77 05/20/20 20:59: POC Glucose 80 05/21/20 05:04: POC Glucose 112 H 05/21/20 06:00: WBC 9.5, RBC 2.79 L, Hgb 8.5 L, Hct 27.1 L, MCV 97.1, MCH 30.5, MCHC 31.4 L, RDW 16.5, Plt Count 204, MPV 9.9, Neut % (Auto) 67.7, Lymph % (Auto) 15.9, [place] % (Auto) 7.6, Eos % (Auto) 8.5, Baso % (Auto) 0.3, Neut # (Auto) 6.4, Lymph # (Auto) 1.5, [place] # (Auto) 0.7, Eos # (Auto) 0.8 H, Baso # (Auto) 0.0 05/21/20 06:00: Sodium 132 L, Potassium 4.2, Chloride 98, Carbon Dioxide 24, Anion Gap 14.2, BUN 44 H, Creatinine 11.10 H, Estimated Creat Clear 6, Estimated GFR 4 L*, Est GFR ( Amer) 5 L* D, Glucose 89, Calcium 7.1 L, Total Bilirubin 0.6, AST 21, ALT 6 L D, Alkaline Phosphatase 62, Total Protein 4.8 L, Albumin 2.2 L D, Globulin 2.6, Albumin/Globulin Ratio 0.8 L I & O for Last 24 hours: Intake & Output 05/18/20 05/19/20 05/20/20 05/21/20 11:59 11:59 11:59 11:59 Intake Total 2020 1372 / 1372 710 / 710 Output Total 3285 / 3285 0 / 0 Balance -1264 / -1264 2057 1372 / 1372 / Weight 250 lb 2.042 oz 248 lb 2 oz 254 lb 4 oz 258 lb 1 oz - Constitutional no acute distress, obese - *Routine HEENT Exam Head: Present: normocephalic Eye: Present: EOMI, PERRL ENT: Present: mucous membranes dry - *Routine Neck Exam Absent: JVD - *Routine Respiratory Exam Present: decreased breath sounds - *Routine Cardiovascular Exam Present: RRR - *Routine Abdominal Exam Present: soft - *Routine Extremities Exam Comments: chronic changes feet - *Routine Skin Exam Comments: chronic changes - *Routine Neurological Exam Present: alert, CN II-XII intact - Routine Psychiatric Exam Present: cooperative. Absent: good insight Assessment and Plan (1) Chronic renal failure Current visit: Yes Status: Acute Qualifiers: Chronic kidney disease stage: unspecified stage Qualified Code(s): N18.9 - Chronic kidney disease, unspecified Category: Medical Code(s): N18.9 - Chronic kidney disease, unspecified (2) PVD (peripheral vascular disease) Current visit: Yes Status: Acute Category: Medical Code(s): I73.9 - Peripheral vascular disease, unspecified (3) ESRD (end stage renal disease) on dialysis Current visit: No Status: Acute Category: Medical Code(s): N18.6 - End stage renal disease; Z99.2 - Dependence on renal dialysis (4) Obesity (BMI 30-39.9) Current visit: Yes Status: Acute Category: Medical Code(s): E66.9 - Obesity, unspecified (5) Cellulitis and abscess of foot Current visit: Yes Status: Acute Category: Medical Code(s): L03.119 - Cellulitis of unspecified part of limb; L02.619 - Cutaneous abscess of unspecified foot (6) Hypocalcemia Current visit: Yes Status: Acute Category: Medical Code(s): E83.51 - Hypocalcemia (7) Cardiomegaly Current visit: Yes Status: Acute Category: Medical Code(s): I51.7 - Cardiomegaly (8) Pericardial effusion without cardiac tamponade Current visit: Yes Status: Acute Category: Medical Code(s): I31.3 - Pericardial effusion (noninflammatory) (9) LVH (left ventricular hypertrophy) Current visit: Yes Status: Acute Category: Medical Code(s): I51.7 - Cardiomegaly (10) Diastolic dysfunction Current visit: Yes Status: Acute Category: Medical Code(s): I51.89 - Other ill-defined heart diseases (11) Aortic stenosis Current visit: Yes Status: Acute Qualifiers: Cardiac
[2020-05-21 12:01] LABS: POC Glucose,Bedside 87 (70-110)
--- NOTE | 2020-05-21 15:44 | PC.NURSE ---
PT IS UP TO CHAIR AT THIS TIME, T/O SHIFT SHE HAS BEEN UNABLE TO AMBULATE AND REQUIRES TWO ASSIST, PT HAS NOT C/O PAIN THIS SHIFT, DIALYSIS PERFORMED PER PT, PERITONEAL ACCESS COVERED WITH DRESSING, PT CURRENTLY HAS MULTIPLE SKIN ISSUES, 1ST AND 2ND DIGIT ON LE ARE BLACKENED AND BLEED EASILY, SHE ALSO HAS SCATTERED SCABS T/O LEGS. PT VSS T/O SHIFT, SLEPT FOR MOST OF THE MORNING UNTIL THIS NURSE ASKED FOR HER TO GET UP TO CHAIR FOR LUNCH, PT C/O NAUSEA THIS AFTERNOON AND WAS GIVEN ZOFRAN PER MAR,PT STATES NO NEEDS AT THIS TIME, WILL CONTINUE TO MONITOR
[2020-05-21 18:23] LABS: POC Glucose,Bedside 64 (70-110)
[2020-05-21 19:02] LABS: POC Glucose,Bedside 71 (70-110)
[2020-05-21 21:51] LABS: POC Glucose,Bedside 93 (70-110)
[2020-05-21 21:51] LABS: POC Glucose,Bedside 66 (70-110)
[2020-05-21 21:51] LABS: POC Glucose,Bedside 72 (70-110)
--- NOTE | 2020-05-21 23:48 | PC.NURSE ---
pt started dialysis at this time
[2020-05-22] VITALS: BP 139/77; PULSE 78; RESP 16; TEMP 36.4; O2SAT 95
[2020-05-22 04:00] VITALS: BP 136/75; PULSE 77; RESP 16; TEMP 36.5; O2SAT 92
[2020-05-22 05:00] VITALS: BMI 40.2
[2020-05-22 06:33] LABS: POC Glucose,Bedside 98 (70-110)
[2020-05-22 07:10] LABS: Basophils % 0.2 % (0.1-2.0); Eosinophils # 0.9 K/mm3 (0.0-0.4); Eosinophils % 9.8 % (0.1-12.0); Hemoglobin 8.6 g/dL (12.2-16.2); Lymphocytes # 1.1 K/mm3 (0.7-4.5); Mean Corpuscular HGB Conc 32.1 g/dL (31.8-35.4); Mean Corpuscular Hemoglobin 30.3 pg (27.0-31.2); Mean Corpuscular Volume 94.5 fl (81-99); Mean Platelet Volume 9.4 fl (7.4-10.4); Monocytes # 0.6 K/mm3 (0.1-1.0); Monocytes % 6.5 % (1.7-9.3); Neutrophils # 6.6 K/mm3 (1.8-7.8); Neutrophils % 71.5 % (37.0-80.0); Platelet Count 227 K/mm3 (142-424); Red Blood Count 2.84 M/mm3 (4.20-5.40); Red Cell Distribution Width 16.3 % (11.5-17.5); White Blood Count 9.2 K/mm3 (4.8-10.8)
[2020-05-22 07:11] LABS: Hematocrit 26.8 % (37.0-47.0)
[2020-05-22 07:13] LABS: Alanine Aminotransferase 4 U/L (12-78); Albumin Level 2.3 g/dl (3.5-5.0); Albumin/Globulin Ratio 0.9 (1.1-1.8); Alkaline Phosphatase 86 U/L (38-126); Anion Gap 15.6 mEq/L (5-15); Aspartate Amino Transferase 16 U/L (14-36); Bilirubin,Total 0.4 mg/dl (0.2-1.3); Blood Urea Nitrogen 40 mg/dl (7-17); Calcium 7.4 mg/dl (8.4-10.2); Carbon Dioxide 25 mmol/L (22.0-30.0); Chloride 98 mmol/L (98-107); Creatinine Clearance Estimated 7 mL/min (50-200); Estimated Glomerular Filt Rate 4 ml/min (>60); GFR (African American) 5 ML/MIN (>60); Globulin 2.6 g/dL (1.3-3.2); Glucose 91 mg/dl (74-100); Potassium 3.6 mmoL/L (3.5-5.1); Sodium 135 mmol/L (136-145); Total Protein,Serum 4.9 g/dl (6.3-8.2)
[2020-05-22 08:00] VITALS: BP 98/70; PULSE 77; RESP 17; RESP 18; TEMP 36.4; O2SAT 92
--- NOTE | 2020-05-22 09:39 | HMH.ACPN2 ---
Internal Medicine - PN: Subj *Date: 05/22/20 *Time: 20:43 Interval history: doing better - labs stable - more out of bed Exam Vital signs and Labs for Last 24 Hours: Temp Pulse Resp BP Pulse Ox 97.6 F 77 17 98/70 L 92 L 05/22/20 08:00 05/22/20 08:00 05/22/20 08:00 05/22/20 08:00 05/22/20 08:00 Laboratory Results - last 24 hr 05/21/20 11:09: POC Glucose 87 05/21/20 16:07: POC Glucose 64 L 05/21/20 18:55: POC Glucose 71 05/21/20 20:10: POC Glucose 66 L 05/21/20 20:54: POC Glucose 72 05/21/20 21:27: POC Glucose 93 05/22/20 06:25: POC Glucose 98 05/22/20 06:26: WBC 9.2, RBC 2.84 L, Hgb 8.6 L, Hct 26.8 L, MCV 94.5, MCH 30.3, MCHC 32.1, RDW 16.3, Plt Count 227, MPV 9.4, Neut % (Auto) 71.5, Lymph % (Auto) 12.0, [place] % (Auto) 6.5, Eos % (Auto) 9.8, Baso % (Auto) 0.2, Neut # (Auto) 6.6, Lymph # (Auto) 1.1, [place] # (Auto) 0.6, Eos # (Auto) 0.9 H, Baso # (Auto) 0.0 05/22/20 06:26: Sodium 135 L, Potassium 3.6, Chloride 98, Carbon Dioxide 25, Anion Gap 15.6 H, BUN 40 H, Creatinine 10.70 H, Estimated Creat Clear 7, Estimated GFR 4 L*, Est GFR ( Amer) 5 L*, Glucose 91, Calcium 7.4 L, Total Bilirubin 0.4, AST 16, ALT 4 L D, Alkaline Phosphatase 86, Total Protein 4.9 L, Albumin 2.3 L, Globulin 2.6, Albumin/Globulin Ratio 0.9 L I & O for Last 24 hours: Intake & Output 05/19/20 05/20/20 05/21/20 05/22/20 11:59 11:59 11:59 11:59 Intake Total 2057 1372 / 1372 710 / 710 2415 / 2415 Output Total 0 / 0 Balance 2057 1372 / 1372 710 / 710 2415 / 2415 Weight 248 lb 2 oz 254 lb 4 oz 258 lb 1 oz 256 lb 6 oz - Constitutional no acute distress, obese - *Routine HEENT Exam Head: Present: normocephalic Eye: Present: EOMI, PERRL ENT: Present: mucous membranes dry - *Routine Neck Exam Present: supple - *Routine Respiratory Exam Present: decreased breath sounds - *Routine Cardiovascular Exam Present: RRR - *Routine Abdominal Exam Present: soft - *Routine Extremities Exam Comments: chronic changes - *Routine Skin Exam Comments: chronic changes to feet - *Routine Neurological Exam Present: alert - Routine Psychiatric Exam Present: normal affect Assessment and Plan (1) Chronic renal failure Current visit: Yes Status: Acute Qualifiers: Chronic kidney disease stage: unspecified stage Qualified Code(s): N18.9 - Chronic kidney disease, unspecified Category: Medical Code(s): N18.9 - Chronic kidney disease, unspecified (2) PVD (peripheral vascular disease) Current visit: Yes Status: Acute Category: Medical Code(s): I73.9 - Peripheral vascular disease, unspecified (3) ESRD (end stage renal disease) on dialysis Current visit: No Status: Acute Category: Medical Code(s): N18.6 - End stage renal disease; Z99.2 - Dependence on renal dialysis (4) Obesity (BMI 30-39.9) Current visit: Yes Status: Acute Category: Medical Code(s): E66.9 - Obesity, unspecified (5) Cellulitis and abscess of foot Current visit: Yes Status: Acute Category: Medical Code(s): L03.119 - Cellulitis of unspecified part of limb; L02.619 - Cutaneous abscess of unspecified foot (6) Hypocalcemia Current visit: Yes Status: Acute Category: Medical Code(s): E83.51 - Hypocalcemia (7) Cardiomegaly Current visit: Yes Status: Acute Category: Medical Code(s): I51.7 - Cardiomegaly (8) Pericardial effusion without cardiac tamponade Current visit: Yes Status: Acute Category: Medical Code(s): I31.3 - Pericardial effusion (noninflammatory) (9) LVH (left ventricular hypertrophy) Current visit: Yes Status: Acute Category: Medical Code(s): I51.7 - Cardiomegaly (10) Diastolic dysfunction Current visit: Yes Status: Acute Category: Medical Code(s): I51.89 - Other ill-defined heart diseases (11) Aortic stenosis Current visit: Yes Status: Acute Qualifiers: Cardiac valve disease etiology: nonrheumatic Qualified Code(s): I35
[2020-05-22 11:42] VITALS: BP 107/48; PULSE 88; RESP 18; TEMP 36.5; O2SAT 93
[2020-05-22 12:24] LABS: POC Glucose,Bedside 81 (70-110)
--- NOTE | 2020-05-22 15:01 | PC.NURSE ---
PT REFUSED TO GET UP TO CHAIR THIS SHIFT. HAS TOLERATED MEDS WELL. APPETITE IMPROVED. NO COMPLAINTS OF SOA ON RA. NO PAIN REPORTED T/O SHIFT. PT 1ST AND 2ND TOES ON BLE BLACKENED, OPEN TO AIR AT THIS TIME FOLLOWING TREATMENT WITH BETADINE, NO DRAINAGE OR BLEEDING NOTED AT THIS TIME, PT ABD PERITONEAL ACCESS COVERED WITH ABD PAD, FIRST ASSESSEMENT REVEALED NOW NEW DRAINAGE BUT A MODERATE AMOUNT OF DRIED RED EXUDATE, NO SWELLING OR PAIN NOTED, PT DID C/O NAUSEA EARLY THIS SHIFT BUT WAS ALLEVIATED WITH PRN ZOFRAN PER DEC. WILL CONTINUE TO MONITOR
[2020-05-22 15:55] VITALS: BP 119/49; PULSE 81; RESP 18; TEMP 36.6; O2SAT 91
[2020-05-22 16:11] LABS: POC Glucose,Bedside 74 (70-110)
[2020-05-22 19:18] LABS: POC Glucose,Bedside 79 (70-110)
[2020-05-22 19:18] LABS: POC Glucose,Bedside 76 (70-110)
[2020-05-22 20:00] VITALS: BP 130/72; PULSE 80; RESP 17; TEMP 36.6; O2SAT 92
[2020-05-22 22:21] LABS: POC Glucose,Bedside 91 (70-110)
[2020-05-23] VITALS: BP 149/71; PULSE 82; RESP 17; TEMP 36.7; O2SAT 94
[2020-05-23 04:00] VITALS: BP 146/64; PULSE 80; RESP 17; TEMP 36.8; O2SAT 94
[2020-05-23 05:00] VITALS: BMI 40.9
[2020-05-23 05:36] LABS: POC Glucose,Bedside 118 (70-110)
[2020-05-23 05:58] LABS: Basophils % 0.3 % (0.1-2.0); Eosinophils # 0.9 K/mm3 (0.0-0.4); Eosinophils % 8.9 % (0.1-12.0); Hemoglobin 8.6 g/dL (12.2-16.2); Lymphocytes # 1.1 K/mm3 (0.7-4.5); Lymphocytes % 11.3 % (10-50); Mean Corpuscular HGB Conc 31.6 g/dL (31.8-35.4); Mean Corpuscular Volume 95.2 fl (81-99); Mean Platelet Volume 9.2 fl (7.4-10.4); Monocytes # 0.7 K/mm3 (0.1-1.0); Monocytes % 7.6 % (1.7-9.3); Neutrophils # 6.8 K/mm3 (1.8-7.8); Neutrophils % 71.8 % (37.0-80.0); Platelet Count 208 K/mm3 (142-424); Red Blood Count 2.86 M/mm3 (4.20-5.40); White Blood Count 9.5 K/mm3 (4.8-10.8)
[2020-05-23 06:02] LABS: Hematocrit 27.2 % (37.0-47.0)
[2020-05-23 06:07] LABS: Alanine Aminotransferase 6 U/L (12-78); Albumin Level 2.2 g/dl (3.5-5.0); Albumin/Globulin Ratio 0.8 (1.1-1.8); Alkaline Phosphatase 89 U/L (38-126); Anion Gap 11.5 mEq/L (5-15); Aspartate Amino Transferase 19 U/L (14-36); Bilirubin,Total 0.4 mg/dl (0.2-1.3); Blood Urea Nitrogen 38 mg/dl (7-17); Calcium 7.4 mg/dl (8.4-10.2); Carbon Dioxide 26 mmol/L (22.0-30.0); Chloride 99 mmol/L (98-107); Creatinine Clearance Estimated 7 mL/min (50-200); Estimated Glomerular Filt Rate 4 ml/min (>60); Globulin 2.7 g/dL (1.3-3.2); Glucose 109 mg/dl (74-100); Potassium 3.5 mmoL/L (3.5-5.1); Sodium 133 mmol/L (136-145); Total Protein,Serum 4.9 g/dl (6.3-8.2)
[2020-05-23 06:10] LABS: GFR (African American) 5 ML/MIN (>60)
[2020-05-23 08:00] VITALS: BP 105/55; PULSE 74; RESP 16; TEMP 36.6; O2SAT 96
--- NOTE | 2020-05-23 09:07 | SW/DCPLANNER ---
WAITING TO SEE IF SHE GETS APPROVED FOR HER HEMODIALYSIS AND IF SO PATIENT IS GOING TO NEED TRANSPORT AND I HAVE SPOKEN WITH [facility] AT [facility] AND SHE IS WORKING WITH [employer] ON 3 DAYS PER WEEK.. IF MEDICALLY STABLE SHE WILL D/C THERE LATER TODAY WITH ANTICIPATION TO START DIALYSIS [facility]....PATIENT IS AWARE OF THE PLAN....
--- NOTE | 2020-05-23 10:11 | SW/DCPLANNER ---
Addendum entered by Lisa Callaway 05/23/20 14:38: [facility] has cancelled the wheelchair for this patient due to MCR not covering because of discharging to SNF level of care. Patients nurse (Svitlana) has stated that patient required 3 people to assist getting her in the chair and would not be able to transport via [employer] therefore an ambulance will be contact for transportation for this patient. Patient will discharge to [facility] today. Addendum entered by Lisa Callaway 05/23/20 10:52: A wheel chair order has been faxed to [facility] for this patient per patients request. Patient has also stated that she wants to use [employer] at discharge to go to [facility]. Patient understands this will cost her $1 per mile for transportation and is willing to pay this benites. Addendum entered by Lisa Callaway 05/23/20 10:38: Patient is agreeable with this plan and stated that she will begin making phone calls for transportation to [facility] once stable for discharge today. Original Note: I have spoke with Ashley at [facility] last week and this morning regarding this patient. This patient has been accepted to [facility] (pending negative COVID test). Patient will receive hemo-dialysis in [facility] on Tuesdays, and Saturdays. Patients first appointment is tomorrow at 11:20AM but her first visit will require her to be there at 10:45AM. Ashley has stated that she has arranged transportation for this patient beginning tomorrow from [facility] to Dialysis and back. This patient will discharge to [facility] once NEGATIVE COVID results are back. Patient will also need hard script for narcotics prior to leaving [facility]. I will follow up with Dr Wolfe and Dr Bobby.
[2020-05-23 10:26] LABS: Adenovirus,PCR Not Detected (NotDetected); Bordetella Pertussis Not Detected (NotDetected); Chlamydophila Pneumoniae, PCR Not Detected (NotDetected); Coronavirus 19, PCR Not Detected (NotDetected); Coronavirus 229E Not Detected (NotDetected); Coronavirus NL63 Not Detected (NotDetected); Coronavirus OC43 Not Detected (NotDetected); Coronovirus HKU1,PCR Not Detected (NotDetected); Human Metapneumovirus Not Detected (NotDetected); Influenza A, PCR Not Detected (NotDetected); Influenza AH1, 2009 Not Detected (NotDetected); Influenza AH1, PCR Not Detected (NotDetected); Influenza AH3,PCR Not Detected (NotDetected); Influenza B, PCR Not Detected (NotDetected); Mycoplasma Pneumoniae, PCR Not Detected (NotDected); Parainfluenza 1, PCR Not Detected (NotDetected); Parainfluenza 2, PCR Not Detected (NotDetected); Parainfluenza 3, PCR Not Detected (NotDetected); Parainfluenza 4, PCR Not Detected (NotDetected); Respiratory Syncytial Virus Not Detected (NotDetected); Rhinovirus/Enterovirus Not Detected (NotDetected)
--- NOTE | 2020-05-23 10:50 | PC.NURSE ---
pt will need/benefit from a wheelchair rather than a can or walker due to gate and mobility issues.
[2020-05-23 11:06] LABS: POC Glucose,Bedside 94 (70-110)
--- NOTE | 2020-05-23 13:03 | HMH.DCSUM ---
General - General Admission date:: 05/14/20 Discharge date: 05/23/20 HPI HPI: this pt presented to the ed -pt has sig hx of pvd and followed by vascular surg at and has crf on peritoneal dialysis at home - pt presented to ed with inc pain and dec ability to walk-Pt reports weakness in buck legs, pt states my legs feel like jello . Pt reports began having sudden weakness in legs lastnight at 10 pm. Pt reports she had an angioplasty done at on and was discharged home yesterday. Pt reports unable to walk. Upon asssessment pt is slow to move her legs around, attempts to pick legs off the bed without success, pt unable to resist gravity when i lift her legs up of the bed. Pt has weak pulses on doppler noted-pedal and post tib. Patient complains of bilateral leg weakness and numbness onset last night at about 10 PM. States they are like jellyfish . States she is unable to stand and bear weight. She was at [facility] 2 days ago and had a stent placed in her left lower extremity. She said they accessed through the right groin. She says that when she left the hospital yesterday discharge she was able to ambulate. She says her arms feel little weak but she is able to use them. No fever or vomiting. She has had some abdominal discomfort since she was in the hospital. She is a peritoneal dialysis patient, normally does peritoneal dialysis daily. She has not had peritoneal dialysis since . She says on , the day of her surgery, she thinks that she may have forgotten to drain her dialysate. She told them that in surgery and they tried to drain it, but she is uncertain whether they were successful. Because of this she decided not to perform dialysis since then. 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 She has had this for several months, which necessitated her stent 2 days ago. She makes very little urine. She has not had any urinary or fecal incontinence. She denies numbness of the groin. The numbness of her leg starts at the hips bilaterally and goes down to her toes. gabriel Consulted: Shannon - vascular surgery Time: 17:07 Reason -: Surgical Eval/Care Comment/Response: He performed the patient's angioplasty. He knows her well. He does not feel there is any surgical emergency. [facility] is on [id number] divert and quality compliance coordinator does not feel that she would be accepted through the emergency room either. Additional Consult: Aiden Time: 17:20 Reason -: Admission, Pt condition Comment/Response: He says he can admit the patient here if she is able to do her own dialysis on the floor since we do not have personnel or equipment to do that. She initially said that her equipment is at home but she can call to see if somebody can bring it. Dr. Wolfe was okay with admission and that circumstance. However, now the patient says that she thinks somebody could bring her supplies, but not her machine and we do not have a machine here to do her peritoneal dialysis. She therefore requests being transferred to a different hospital. We will attempt [facility]. 6:00 PM: Patient states that family will bring her all of her supplies, including her machine, therefore she can be admitted here. pt was admitted for treatment Hospital Course Hospital Course: pt has had slow transition with ivf and meds to be able to be more active - she has tolerated diet and has done peritoneal dialysis and will convert to hemo in am - she was seen by therapy - she was seen by podiatry-Ms. Wright is a 40-year-old female who was admitted 05/14/20. Patient had vascular surgery [facility] 05/12/2020 and was discharged 05/13/2020. Vascular procedure consisted of left lower extremity angiogram and left SFA balloon angioplasty on 05/12/[address] Mahmood. The discharge plan was to continue aspirin and atorvastatin. Continue Eliquis. Plan to follow-up and get new ABIs in 2 week
--- NOTE | 2020-05-23 13:43 | PC.NURSE ---
report called to Mariam VERMA at [facility].
[2020-05-23 15:38] LABS: Phosphorous 6.1 mg/dl (2.5-4.5)
== END 2020-05-23 15:06 ==
LOC: ER 18:01 → 2ND 18:46
PROVIDERS: Nurse Practitioner Family; Admitting Provider Emergency Medicine; Emergency Provider Emergency Medicine; PCP Emergency Medicine; Visit Provider Emergency Medicine
DX: E11.22 Type 2 diabetes mellitus with diabetic chronic kidney disease (principal); N18.5 Chronic kidney disease, stage 5; Z95.820 Peripheral vascular angioplasty status with implants and grafts; I70.202 Unspecified atherosclerosis of native arteries of extremities, left leg; E83.51 Hypocalcemia; Z99.2 Dependence on renal dialysis; Z79.4 Long term (current) use of insulin; Z79.01 Long term (current) use of anticoagulants; I70.92 Chronic total occlusion of artery of the extremities; I12.0 Hypertensive chronic kidney disease with stage 5 chronic kidney disease or end stage renal disease; I31.3 Pericardial effusion (noninflammatory); E11.52 Type 2 diabetes mellitus with diabetic peripheral angiopathy with gangrene; I96 Gangrene, not elsewhere classified; D63.1 Anemia in chronic kidney disease
CPT/HCPCS: 36415; 71045; 73630; 80048; 80053; 82310; 82962; 84100; 84484; 85007; 85025; 86704; 87340; 87380; 87581; 87633; 87798; 93005; 93306; 97110; 97162; 97166; 97530; 99285; G0378; J1335; J2405

== ENCOUNTER 2020-05-30 15:08 | Observation (INO) | payer MEDICARE, SELFPAY ==
[2020-05-30 15:10] VITALS: BP 93/58; PULSE 71; RESP 18; O2SAT 96; BMI 37.5
[2020-05-30 15:12] VITALS: BMI 37.5
--- NOTE | 2020-05-30 15:19 | PC.NURSE ---
LAB HERE DRAWING BLOOD
--- NOTE | 2020-05-30 15:39 | PC.NURSE ---
PT EATING A LUNCH TRAY
--- NOTE | 2020-05-30 15:42 | HMH.EDGENADL ---
ED Disposition Clinical Impression: Dehydration, Hypoglycemia, ESRD (end stage renal disease) on dialysis, Dry gangrene Diabetes type 2, controlled Qualifiers: Diabetes mellitus senior care insulin use: without manager terminal use Diabetes mellitus complication status: with circulatory complication Diabetes mellitus complication detail: with peripheral angiopathy with gangrene Qualified Code(s): E11.52 - Type 2 diabetes mellitus with diabetic peripheral angiopathy with gangrene Disposition: Admitted as Observation Condition on Discharge: Fair Time of Disposition: 17:51 - Critical Care Critical Care Time: No Attestation: On 05/30/20, the high probability of a clinically significant, sudden or life threatening deterioration of the following system(s) required my full and direct attention, intervention and personal management. The time I documented below is in addition to time spent performing reported procedures but includes the following listed in this critical care notation. Medical Decision Making - Medical Records Medical records reviewed: Yes: I reviewed the patient's medical records. - Johnny Inquiry Pt receiving controlled substance: No Vital Signs: 05/30/20 15:10 Pulse Rate [Radial] 71 Respiratory Rate 18 Blood Pressure [Right Arm] 93/58 L Blood Pressure Mean [Right Arm] 69 Blood Pressure Source [Right Arm] Automatic Cuff Blood Pressure Position [Right Arm] Sitting 02 Sat by Pulse Oximetry 96 Oxygen Delivery Method Nasal Cannula Oxygen Flow Rate (LPM) 2 - Lab Data Lab Results 05/30/20 15:29: Sodium 133 L, Potassium 5.0, Chloride 91 L, Carbon Dioxide 29, Anion Gap 18.0 H, BUN 30 H, Creatinine 6.90 H, Estimated Creat Clear 19, Estimated GFR 7 L*, Est GFR ( Amer) 8 L*, Glucose 65 L, Calcium 8.4, Total Bilirubin 1.3, AST 64 H, ALT 20, Alkaline Phosphatase 90, Total Protein 4.8 L, Albumin 2.4 L, Globulin 2.4, Albumin/Globulin Ratio 1.0 L, Lipase 95 05/30/20 15:29: Phosphorus 4.7 H, Magnesium 2.1 05/30/20 15:29: Lactate 6.2 H 05/30/20 16:29: WBC 9.4, RBC 3.32 L, Hgb 10.2 L, Hct 32.1 L, MCV 96.6, MCH 30.7, MCHC 31.8, RDW 17.3, Plt Count 116 L, MPV 10.0, Neut % (Auto) 81.7 H, Lymph % (Auto) 10.6, [place] % (Auto) 6.1, Eos % (Auto) 1.3, Baso % (Auto) 0.4, Neut # (Auto) 7.7, Lymph # (Auto) 1.0, [place] # (Auto) 0.6, Eos # (Auto) 0.1, Baso # (Auto) 0.0 Result diagrams: 05/30/20 16:29 05/30/20 15:29 Orders (Tests/Meds): ED MEDICATIONS Generic Name Dose Route Start Last Admin Trade Name Freq PRN Reason Stop Dose Admin Calcitriol 0.25 mcg 05/31/20 09:00 Calcitriol 0.25mcg Capsule PO 06/30/20 08:59 DAILY [facility] Carvedilol 6.25 mg 05/30/20 21:00 Coreg 6.25mg Tablet PO 06/29/20 20:59 BID RANJANA Gabapentin 600 mg 05/30/20 21:00 Neurontin 300mg Capsule PO 06/29/20 20:59 TID [facility] Sodium Chloride 1,000 mls @ 50 mls/hr 05/30/20 18:00 Sod Chlor 0.9% 1000ml Bag IV 06/29/20 17:59 .Q20H RANJANA Non-Formulary Medication 5 mg 05/30/20 21:00 Apixaban [Eliquis 5mg Tab] PO 06/29/20 20:59 BID RANJANA Non-Formulary Medication 80 mg 05/30/20 21:00 Atorvastatin Calcium [Lipitor 80mg Tab] PO 06/29/20 20:59 HS RANJANA Non-Formulary Medication 30 mg 05/31/20 09:00 Cinacalcet Hcl [Sensipar] PO 06/30/20 08:59 DAILY RANJANA Non-Formulary Medication 2,400 mg 05/30/20 21:00 Sevelamer Carbonate PO 06/29/20 20:59 TID RANJANA Non-Formulary Medication 150 mg 05/31/20 09:00 Venlafaxine Hcl [Effexor Xr 150mg] PO 06/30/20 08:59 DAILY RANJANA Pantoprazole Sodium 40 mg 05/30/20 21:00 Protonix 40mg Tablet PO 06/29/20 20:59 HS RANJANA Discontinued Medications Generic Name Dose Route Start Last Admin Trade Name Freq PRN Reason Stop Dose Admin Dextrose 50 ml 05/30/20 17:06 05/30/20 17:10 Dextrose 50% 50ml Syringe IVP 05/30/20 17:07 50 ml ONCE ONE Administration ORDERS Category Date Time Status Basic Metabolic Panel AMLAB Lab 0
--- NOTE | 2020-05-30 15:43 | XR_ITS ---
PROCEDURE: XR CHEST PORTABLE CLINICAL HISTORY: malaise, weak COMPARISON: [id number] XR ribs LT min 3V w CXR1V from 10/01/2018 CXR1VP XR chest portable from 10/02/2018 XR CHEST PORTABLE from 05/14/2020 FINDINGS: There is mild cardiomegaly without failure. There is increased density in the left lung base with obscuration of the left hemidiaphragm suggesting underlying atelectasis or infiltrate. Upper lobes are clear. There are low lung volumes. No acute bony abnormalities. IMPRESSION: Low lung volumes with increased density in the left lung base consistent with underlying atelectasis or infiltrate Dictated by: Madhav Nelson MD 05/30/2020 17:27 Electronically signed by Madhav Nelson MD in [place] 05/30/2020 17:27
--- NOTE | 2020-05-30 15:49 | ECG_ITS ---
APPROVED REPORT Exam: Resting ECG HR:72 bpm ECG Measurements Heart Rate 72 AXES LA 150 P 45 QRSd 96 QRS 37 QT 418 T 107 QTc 457 <Conclusion> Normal sinus rhythm Nonspecific T wave abnormality Abnormal ECG Electronically signed by : Nain Rose, 06/01/2020 06:43:36
[2020-05-30 16:17] LABS: Chloride 91 mmol/L (98-107)
[2020-05-30 16:18] LABS: Sodium 133 mmol/L (136-145)
[2020-05-30 16:20] LABS: Alanine Aminotransferase 20 U/L (12-78); Alkaline Phosphatase 90 U/L (38-126); Aspartate Amino Transferase 64 U/L (14-36); Bilirubin,Total 1.3 mg/dl (0.2-1.3); Blood Urea Nitrogen 30 mg/dl (7-17); Carbon Dioxide 29 mmol/L (22.0-30.0); Creatinine Clearance Estimated 19 mL/min (50-200); Estimated Glomerular Filt Rate 7 ml/min (>60); GFR (African American) 8 ML/MIN (>60); Lipase 95 U/L (23-300); Magnesium 2.1 mg/dl (1.6-2.3); Phosphorous 4.7 mg/dl (2.5-4.5)
[2020-05-30 16:21] LABS: Albumin Level 2.4 g/dl (3.5-5.0); Calcium 8.4 mg/dl (8.4-10.2); Globulin 2.4 g/dL (1.3-3.2); Glucose 65 mg/dl (74-100); Total Protein,Serum 4.8 g/dl (6.3-8.2)
[2020-05-30 16:41] LABS: Basophils % 0.4 % (0.1-2.0); Eosinophils # 0.1 K/mm3 (0.0-0.4); Eosinophils % 1.3 % (0.1-12.0); Hematocrit 32.1 % (37.0-47.0); Hemoglobin 10.2 g/dL (12.2-16.2); Lymphocytes % 10.6 % (10-50); Mean Corpuscular HGB Conc 31.8 g/dL (31.8-35.4); Mean Corpuscular Hemoglobin 30.7 pg (27.0-31.2); Mean Corpuscular Volume 96.6 fl (81-99); Monocytes # 0.6 K/mm3 (0.1-1.0); Monocytes % 6.1 % (1.7-9.3); Neutrophils # 7.7 K/mm3 (1.8-7.8); Neutrophils % 81.7 % (37.0-80.0); Platelet Count 116 K/mm3 (142-424); Red Blood Count 3.32 M/mm3 (4.20-5.40); Red Cell Distribution Width 17.3 % (11.5-17.5); White Blood Count 9.4 K/mm3 (4.8-10.8)
[2020-05-30 17:55] LABS: Lactic Acid 6.2 mmol/L (0.7-2.1)
--- NOTE | 2020-05-30 17:55 | PC.NURSE ---
critical lactic reported to dr rivas. no new orders received at this time.
[2020-05-30 18:06] VITALS: BMI 37.8
--- NOTE | 2020-05-30 18:26 | PC.NURSE ---
ED nurse states ED MD aware of pt's critical lactic and no new orders per sepsis protocol.
[2020-05-30 18:31] VITALS: BP 123/90; PULSE 75; RESP 18; TEMP 36.7; O2SAT 96
[2020-05-30 18:51] VITALS: BP 101/74; PULSE 82; RESP 22; TEMP 36.6; O2SAT 94
[2020-05-30 19:44] LABS: Reflex Lactic Add Lactic Reflex
--- NOTE | 2020-05-30 19:56 | PC.NURSE ---
Pt transferred to floor via stretcher. Is currently on 2 L O2 per nasal cannula w/ no s/s of resp distress. Pt states she is a full code. Denies pain at this time. Consent obtained for pictures to be taken of pt's bilat feet. Pictures taken and placed on chart. FSBS 114. Call santoro w/in reach. VSS. Report given to Peewee Ramirez RN.
[2020-05-30 20:15] VITALS: BP 105/71; PULSE 76; RESP 16; TEMP 36.4; O2SAT 94
[2020-05-30 20:20] VITALS: O2SAT 94
[2020-05-30 20:23] LABS: Lactic Acid Follow Up (RFLX 1) 3.6 mmol/L (0.7-2.1)
[2020-05-30 20:30] LABS: VBG PCO2 46.5 mmol/L (35-51); VBG PH 7.39 mmol/L (7.31-7.41)
[2020-05-30 20:31] LABS: VBG Base Excess 2.3 mmol/L (-2.4-2.3); VBG HCO3 27.3 mmol/L (23-30); VBG PO2 36.7 mmol/L (28-40); VBG Total CO2 28.8 mmol/L (23-27)
[2020-05-30 22:09] LABS: Reflex Lactic (2 hrs) Add Lactic Reflex
[2020-05-30 22:38] LABS: Lactic Acid Follow up (RFLX 2) 2.6 mmol/L (0.7-2.1)
[2020-05-31 00:15] LABS: POC Glucose,Bedside 89 (70-110)
[2020-05-31 04:00] VITALS: BP 113/70; PULSE 75; RESP 18; TEMP 36.4; O2SAT 94
[2020-05-31 05:03] VITALS: BMI 37.4
--- NOTE | 2020-05-31 06:06 | PC.NURSE ---
Pt A&OX4 LUNGS CTA. pt denies any pain or SOA. pt had several soft stools with gross blood per attends, large external hemorrhoids noted. 20g RAC infusing NS @ 50ml. Pt has rested quietly this shift
[2020-05-31 06:28] LABS: Chloride 92 mmol/L (98-107); Potassium 4.5 mmoL/L (3.5-5.1); Sodium 133 mmol/L (136-145)
[2020-05-31 06:31] LABS: Anion Gap 13.5 mEq/L (5-15); Blood Urea Nitrogen 37 mg/dl (7-17); Calcium 8.3 mg/dl (8.4-10.2); Carbon Dioxide 32 mmol/L (22.0-30.0); Creatinine Clearance Estimated 18 mL/min (50-200); Estimated Glomerular Filt Rate 6 ml/min (>60); GFR (African American) 7 ML/MIN (>60); Glucose 74 mg/dl (74-100)
[2020-05-31 07:45] VITALS: BP 96/60; PULSE 72; RESP 18; TEMP 36.3; O2SAT 98
--- NOTE | 2020-05-31 08:14 | HMH.PHAVTE ---
[facility] Pharmacy VTE Monitoring - Patient Demographics Admission date: 05/30/20 Report Date: 05/31/20 Time: 08:14 Allergies/Adverse Reactions: Patient Allergies morphine Allergy (Verified 05/14/20 21:27) Height: 1.7 m Weight: 108.182 kg Patient Problems: Current Active Problems ESRD (end stage renal disease) on dialysis (Acute) Diabetes type 2, controlled (Acute) Dry gangrene (Acute) Dehydration (Acute) Hypoglycemia (Acute) - VTE Risk Labs: VTE Related Lab Results Hgb 10.2 g/dL (12.2-16.2) L 05/30/20 16:29 Hct 32.1 % (37.0-47.0) L 05/30/20 16:29 Plt Count 116 K/mm3 (142-424) L 05/30/20 16:29 BUN 37 mg/dl (7-17) H 05/31/20 05:55 Creatinine 7.40 mg/dl (0.52-1.04) H 05/31/20 05:55 Estimated Creat Clear 18 mL/min (50-200) 05/31/20 05:55 Was VTE Risk Assessment Performed: Yes VTE Score: 2 VTE Risk Level: Very Low Risk Clinical Trial Participant: No - Prophylaxis VTE Prophylaxis Ordered?: Yes Types of VTE Prophylaxis: TEDS Knee High
[2020-05-31 08:54] LABS: POC Glucose,Bedside 63 (70-110)
[2020-05-31 08:54] LABS: POC Glucose,Bedside 114 (70-110)
[2020-05-31 08:54] LABS: POC Glucose,Bedside 82 (70-110)
--- NOTE | 2020-05-31 10:01 | SW/DCPLANNER ---
Addendum entered by Lisa Callaway 05/31/20 14:20: This patient will discharge back to [facility] today. I offered to set this patient up with [employer] and patient stated that she preferred an ambulance transportation. Patient understands that she could be charged for this transportation. I have made nursing staff (Svitlana Hernandez) aware of situation. Addendum entered by Lisa Callaway 05/31/20 13:57: Miriam from [facility] has requested this patient have COVID testing prior to returning to [facility]. Patients COVID is negative. I will get in contact with [facility]. Original Note: This patient currently resides at [facility] level of care. I will informed [facility] staff that the plan for this patient is to discharge back today.
[2020-05-31 10:39] LABS: Adenovirus,PCR Not Detected (NotDetected); Bordetella Pertussis Not Detected (NotDetected); Chlamydophila Pneumoniae, PCR Not Detected (NotDetected); Coronavirus 19, PCR Not Detected (NotDetected); Coronavirus 229E Not Detected (NotDetected); Coronavirus NL63 Not Detected (NotDetected); Coronavirus OC43 Not Detected (NotDetected); Coronovirus HKU1,PCR Not Detected (NotDetected); Human Metapneumovirus Not Detected (NotDetected); Influenza A, PCR Not Detected (NotDetected); Influenza AH1, 2009 Not Detected (NotDetected); Influenza AH1, PCR Not Detected (NotDetected); Influenza AH3,PCR Not Detected (NotDetected); Influenza B, PCR Not Detected (NotDetected); Mycoplasma Pneumoniae, PCR Not Detected (NotDetected); Parainfluenza 1, PCR Not Detected (NotDetected); Parainfluenza 2, PCR Not Detected (NotDetected); Parainfluenza 3, PCR Not Detected (NotDetected); Parainfluenza 4, PCR Not Detected (NotDetected); Respiratory Syncytial Virus Not Detected (NotDetected); Rhinovirus/Enterovirus Not Detected (NotDetected)
--- NOTE | 2020-05-31 10:58 | PC.NURSE ---
have called dr. belcher office to speak with dr. murry regarding blood cultures. awaiting call back.
--- NOTE | 2020-05-31 13:22 | HMH.HPDC ---
General - General Admission date:: 05/30/20 Discharge date: 05/31/20 *Admission Date: 05/30/20 *Chief complaint: generalized weakness *History of present illness: In summary this is a 40-year-old female with history of diabetes and ESRD presenting to the emergency department with generalized malaise and poor appetite. Patient appears chronically unwell on arrival, but she is nontoxic-appearing and vital signs are stable. Differential diagnoses include hypoglycemia, electrolyte abnormality, cellulitis of the lower extremities, systemic infection. Plan to obtain CBC, CMP, lipase, lactate, blood cultures, chest x-ray, EKG, urinalysis. Chest x-ray shows cardiomegaly, but no pulmonary infiltrate or other abnormality. Laboratory results show sequela of ESRD. Patient's creatinine is 6.9, GFR less than 5. Electrolytes grossly within normal limits. Elevated anion gap of 18, consistent with dehydration. patient unable to give us a urinalysis, not making much urine. She continued to be fairly lethargic in the emergency department. Had minimal interest in eating. Her vital signs are stable, patient orientedx3 and she was protecting her airway. I spoke with Dr. Ramires on-call for Dr. Wolfe. Given her poor clinical picture and evidence of dehydration, hypoglycemia, recommended observation. Every 4 fingersticks. Gentle normal saline. [facility] History Medical History: Reports:: Anxiety, Congenital Heart Disease, Diabetes Mellitus Type 2, Hypertension, Peripheral Vascular Disease, Renal Disease, Renal Insufficiency Denies:: Cancer, Diabetes Mellitus Type 1, Internal Pacemaker, MRSA, Seizures *Have you ever received a pneumonia vaccine?: No *Have you received a flu vaccine this season?: No Other Medical History: Reports: Anemia, Other. Denies: Blood Transfusion Reaction Laterality Cases: Left: Carpal Tunnel Release Other Surgeries: Yes: Angioplasty (stent placed in LLE.), Cholecystectomy, , Other (Fistula left arm.). No: Pacemaker Amputation: No Fractures: No - *Social History Last grade of school completed: High school graduate Smoking Status: Never smoker Tobacco Type: cigarettes # Packs/Day (cigarettes): 0 Alcohol Intake: never Substance Use Type: denies use *Occupational Status:: disabled Housing: assisted Household Members: children *Travel in the last 8 weeks: None - Psychiatric History Pschychiatric History:: Reports:: Anxiety Family Hx:: Cancer, Diabetes, Alcoholism Review of Systems - Constitutional Reports daytime sleepiness, Reports fatigue, Reports lack of energy, Reports malaise, Reports weakness - Eyes Denies change in vision - ENT Denies abnormal hearing - *Cardiovascular Reports generalized swelling, Denies chest pain - *Respiratory Denies change in phlegm color, Denies shortness of breath with activity, Denies coughing up blood, Denies pain on inspiration, Denies wheezing - *Gastrointestinal Reports bloating, Reports nausea, Denies abdominal pain - *Genitourinary Reports other (esrd on pd) - *Musculoskeletal Reports muscle weakness, Reports body aches, Reports stiffness - Integumentary/Breasts Denies yellowing of the skin - *Neurologic Denies dizziness, Denies headache(s), Denies numbness, Denies fainting - Psychiatric Reports lack of enjoyment, Reports change in appetite, Reports difficulty concentrating - Endocrine Denies cold intolerance - Hematologic/Lymphatic Denies easy bleeding - Allergic/Immunologic Denies wheezing Exam Vital signs and Labs for Last 24 Hours: Temp Pulse Resp BP Pulse Ox 97.4 F L 72 18 96/60 L 98 05/31/20 07:45 05/31/20 07:45 05/31/20 07:45 05/31/20 07:45 05/31/20 07:45 Laboratory Results - last 24 hr 05/30/20 15:29: Sodium 133 L, Potassium 5.0, Chloride 91 L, Carbon Dioxide 29, Anion Gap 18.0 H, BUN 30 H, Creatinine 6.90 H, Estimated Creat Clear 19, Estimated GFR 7 L*, Est GFR ( Amer) 8 L*, Glucose 65 L, Calcium 8.4, Tot
--- NOTE | 2020-05-31 14:28 | PC.NURSE ---
REPORT CALLED TO DEV VERMA AT [facility]
--- NOTE | 2020-05-31 14:59 | PC.NURSE ---
[facility] CALLED MULTIPLE TIMES WITH NO ANSWER. CALLED DISPATCH WHO STATED SHE WOULD LET THEM KNOW ABOUT TRANSPORT.
[2020-05-31 16:32] LABS: POC Glucose,Bedside 119 (70-110)
[2020-05-31 16:36] LABS: POC Glucose,Bedside 107 (70-110)
[2020-05-31 20:03] LABS: POC Glucose,Bedside 63 (70-110)
[2020-05-31 20:03] LABS: POC Glucose,Bedside 163 (70-110)
[2020-06-27 12:49] LABS: POC Glucose,Bedside 76 (70-110)
== END 2020-05-31 16:42 ==
LOC: ER 17:17 → 2ND 18:24
PROVIDERS: Admitting Provider Family Medicine; Emergency Provider Emergency Medicine; PCP Emergency Medicine; Visit Provider Family Medicine
DX: E86.0 Dehydration (principal); Z95.5 Presence of coronary angioplasty implant and graft; Z95.820 Peripheral vascular angioplasty status with implants and grafts; Z99.2 Dependence on renal dialysis; Z79.01 Long term (current) use of anticoagulants; I70.202 Unspecified atherosclerosis of native arteries of extremities, left leg; E11.52 Type 2 diabetes mellitus with diabetic peripheral angiopathy with gangrene; E11.22 Type 2 diabetes mellitus with diabetic chronic kidney disease; E11.65 Type 2 diabetes mellitus with hyperglycemia; I12.0 Hypertensive chronic kidney disease with stage 5 chronic kidney disease or end stage renal disease; N18.5 Chronic kidney disease, stage 5; J98.11 Atelectasis; Z79.899 Other long term (current) drug therapy
CPT/HCPCS: 36415; 71045; 80048; 80053; 82803; 82962; 83605; 83690; 83735; 84100; 85025; 87040; 87077; 87081; 87186; 87581; 87633; 87798; 93005; 96374; 99284; G0378; J2020

== ENCOUNTER 2020-06-02 01:31 | Emergency (ER) | payer MEDICARE, SELFPAY ==
[2020-06-02 01:31] VITALS: BP 126/90; PULSE 56; RESP 16; TEMP 36.9; O2SAT 92; BMI 33.9; BMI 38.4
--- NOTE | 2020-06-02 01:38 | XR_ITS ---
PROCEDURE: XR CHEST PORTABLE CLINICAL HISTORY: unresponsive Unresponsive, diabetes COMPARISON: CT CT ABDOMEN PELVIS WO CON from 06/02/2020 FINDINGS: There is cardiomegaly without failure. There are low lung volumes with vascular crowding. Patchy density is present in the right upper lobe suggesting developing pneumonia. There is left lower lobe consolidation not significantly changed. No acute bony abnormalities. IMPRESSION: Cardiomegaly with left lower lobe and right upper lobe airspace disease/pneumonia Dictated b Madhav Nelson MD 06/02/2020 07:47 Madhav Nelson MD in [place] 06/02/2020 07:47
--- NOTE | 2020-06-02 01:38 | CT_ITS ---
PROCEDURE: CT ABDOMEN PELVIS WO CON CLINICAL INDICATION: GI Bleed GI bleed, renal failure, abdominal pain and tenderness, unresponsive COMPARISON: No exams were available for comparison TECHNIQUE: Axial images obtained with sagittal and coronal reformats. All CT scans at the facility use one or more dose reduction, viz: automated exposure control, ma/kV adjustment per patient size (including targeted exams where dose is matched to indication, i.e. head), or iterative reconstruction technique. FINDINGS: LOWER THORAX: Consolidation/volume loss is present in both lower lobes. There is a small left pleural effusion. There is a moderate-sized pericardial effusion measuring 2.7 cm in thickness. Coronary artery calcifications are present ABDOMEN & PELVIS: There is diffuse vascular calcification. The liver, spleen, adrenal glands, and pancreas have an unremarkable appearance. No obvious renal or ureteral calculi or hydronephrosis. Extensive calcification of the arteries however could obscure underlying renal calcification. Urinary bladder is distended. There is a small amount of ascites. There is a peritoneal catheter present which is curled in the right lower quadrant. No evidence of appendicitis diverticulitis intestinal obstruction or free air. There is diffuse anasarca. Scattered mildly prominent inguinal lymph nodes are present measuring up to 2.6 by 1.5 cm in the left inguinal region There is diffuse increased bony density of this skeletal structures consistent with renal osteodystrophy. There is an old left 8th rib fracture. IMPRESSION: 1. Bilateral lower lobe consolidation with left pleural effusion and moderate-sized pericardial effusion 2. Ascites with peritoneal dialysis catheter noted. 3. Diffuse anasarca 4. Diffuse vascular calcification Dictated b Madhav Nelson MD 06/02/2020 08:05 Madhav Nelson MD in [place] 06/02/2020 08:05
[2020-06-02 01:48] LABS: POC Glucose,Bedside 124 (70-110)
[2020-06-02 01:59] LABS: Alanine Aminotransferase 53 U/L (12-78); Albumin Level 2.4 g/dl (3.5-5.0); Albumin/Globulin Ratio 0.9 (1.1-1.8); Alkaline Phosphatase 125 U/L (38-126); Anion Gap 21.4 mEq/L (5-15); Aspartate Amino Transferase 190 U/L (14-36); Bilirubin,Total 1.1 mg/dl (0.2-1.3); Blood Urea Nitrogen 48 mg/dl (7-17); Calcium 7.6 mg/dl (8.4-10.2); Carbon Dioxide 25 mmol/L (22.0-30.0); Chloride 91 mmol/L (98-107); Globulin 2.8 g/dL (1.3-3.2); Potassium 5.4 mmoL/L (3.5-5.1); Sodium 132 mmol/L (136-145); Total Protein,Serum 5.2 g/dl (6.3-8.2)
[2020-06-02 02:00] LABS: Basophils # 0.1 K/mm3 (0-0.2); Basophils % 0.5 % (0.1-2.0); Eosinophils # 0.1 K/mm3 (0.0-0.4); Eosinophils % 0.6 % (0.1-12.0); Lymphocytes # 2.2 K/mm3 (0.7-4.5); Lymphocytes % 10.7 % (10-50); Mean Corpuscular HGB Conc 31.3 g/dL (31.8-35.4); Mean Corpuscular Hemoglobin 31.6 pg (27.0-31.2); Mean Corpuscular Volume 100.9 fl (81-99); Mean Platelet Volume 10.6 fl (7.4-10.4); Monocytes # 1.5 K/mm3 (0.1-1.0); Monocytes % 7.3 % (1.7-9.3); Neutrophils # 16.6 K/mm3 (1.8-7.8); Neutrophils % 80.9 % (37.0-80.0); Occult Blood,Stool Positive (Negative); Platelet Count 172 K/mm3 (142-424); Red Blood Count 2.22 M/mm3 (4.20-5.40); Red Cell Distribution Width 20.3 % (11.5-17.5); White Blood Count 20.5 K/mm3 (4.8-10.8)
--- NOTE | 2020-06-02 02:00 | PC.NURSE ---
pt in ct
[2020-06-02 02:05] LABS: Creatinine Clearance Estimated 14 mL/min (50-200); Estimated Glomerular Filt Rate 5 ml/min (>60); GFR (African American) 6 ML/MIN (>60)
[2020-06-02 02:07] LABS: Hematocrit 22.4 % (37.0-47.0)
[2020-06-02 02:08] LABS: MANUAL DIFFERENTIAL MANUAL DIFFERENTIAL (MANUAL DIFF)
--- NOTE | 2020-06-02 02:08 | PC.NURSE ---
Dr. Padilla notified of critical Hgb and Hct
[2020-06-02 02:09] LABS: Glucose 41 mg/dl (74-100)
[2020-06-02 02:14] LABS: Troponin I 0.07 ng/ml (0.00-0.034)
--- NOTE | 2020-06-02 02:18 | PC.NURSE ---
attempted to transfer pt to . no beds available
--- NOTE | 2020-06-02 02:19 | PC.NURSE ---
Called [facility] for [employer]. [facility] on divert
--- NOTE | 2020-06-02 02:19 | PC.NURSE ---
call out to [facility] for transfer. hospitalist is to call back
--- NOTE | 2020-06-02 02:22 | PC.NURSE ---
speaking to dr javier at
--- NOTE | 2020-06-02 02:25 | HMH.EDGENADL ---
ED Disposition Clinical Impression: GI bleed, VRE (vancomycin resistant enterococcus) culture positive, End stage renal disease, Hyperglycemia Disposition: Xfer Short-Term Hosp Condition on Discharge: Good Instructions: DI for Hyperglycemia -- Adult Referrals: Giuliano Wolfe MD [Primary Care Provider] - - Critical Care Critical Care Time: No Attestation: On 06/02/20, the high probability of a clinically significant, sudden or life threatening deterioration of the following system(s) required my full and direct attention, intervention and personal management. The time I documented below is in addition to time spent performing reported procedures but includes the following listed in this critical care notation. Medical Decision Making - Medical Records Medical records reviewed: Yes: I reviewed the patient's medical records. - Johnny Inquiry Pt receiving controlled substance: No Vital Signs: 06/02/20 01:31 Temperature 98.4 F Temperature Source Oral Pulse Rate [Left Radial] 56 L Respiratory Rate 16 Blood Pressure [Right Arm] 126/90 Blood Pressure Mean [Right Arm] 102 Blood Pressure Source [Right Arm] Automatic Cuff Blood Pressure Position [Right Arm] Sitting 02 Sat by Pulse Oximetry 92 L Oxygen Delivery Method Nasal Cannula Oxygen Flow Rate (LPM) 5 - Lab Data Lab results reviewed: Yes: I reviewed the patient's lab results. Lab Results 06/02/20 01:35: Stool Occult Blood Positive A 06/02/20 01:35: WBC 20.5 H* D, RBC 2.22 L D, Hgb 7.0 L*, Hct 22.4 L*, MCV 100.9 H, MCH 31.6 H, MCHC 31.3 L, RDW 20.3 H, Plt Count 172 D, MPV 10.6 H, Neut % (Auto) 80.9 H, Lymph % (Auto) 10.7, Bea[place]gard % (Auto) 7.3, Eos % (Auto) 0.6, Baso % (Auto) 0.5, Neut # (Auto) 16.6 H, Lymph # (Auto) 2.2, Bea[place]gard # (Auto) 1.5 H, Eos # (Auto) 0.1, Baso # (Auto) 0.1 06/02/20 01:35: Sodium 132 L, Potassium 5.4 H, Chloride 91 L, Carbon Dioxide 25 D, Anion Gap 21.4 H, BUN 48 H D, Creatinine 9.10 H D, Estimated Creat Clear 14, Estimated GFR 5 L*, Est GFR ( Amer) 6 L*, Glucose 41 L, Calcium 7.6 L, Total Bilirubin 1.1, AST 190 H D, ALT 53 D, Alkaline Phosphatase 125, Troponin I 0.07 H, Total Protein 5.2 L, Albumin 2.4 L, Globulin 2.8, Albumin/Globulin Ratio 0.9 L 06/02/20 01:42: POC Glucose 124 H Result diagrams: 06/02/20 01:35 06/02/20 01:35 Orders (Tests/Meds): ED MEDICATIONS Generic Name Dose Route Start Last Admin Trade Name Freq PRN Reason Stop Dose Admin Dextrose 1,000 mls @ 50 mls/hr 06/02/20 01:45 Dext 5% In Water 1000mls IV 07/02/20 01:44 .Q20H RANJANA Pantoprazole Sodium 80 mg/ 100 mls @ 100 mls/hr 06/02/20 01:38 Sodium Chloride IV 06/02/20 02:37 ONCE ONE Pantoprazole Sodium 80 mg/ 100 mls @ 10 mls/hr 06/02/20 02:40 Sodium Chloride IV 06/05/20 02:39 .Q10H RANJANA Sodium Chloride 250 mls @ 25 mls/hr 06/02/20 02:15 Sod Chlor 0.9% 250ml Bag IV 06/03/20 02:14 .Q10H RANJANA Discontinued Medications Generic Name Dose Route Start Last Admin Trade Name Freq PRN Reason Stop Dose Admin Dextrose 50 ml 06/02/20 01:38 Dextrose 50% 50ml Syringe IVP 06/02/20 01:39 ONCE ONE ORDERS Category Date Time Status Type and Screen Routine BBK 06/02/20 02:[address] abdomen pelvis wo con Stat Cat Scan 06/02/20 01:38 Ordered XR chest portable Stat Exams 06/02/20 01:38 Ordered Complete Blood Count Auto Diff Stat Lab 06/02/20 01:35 Results Troponin I Q3H Lab 06/02/20 04:45 Ordered Troponin I Q3H Lab 06/02/20 07:45 Ordered - CT Data CT Scan: Abdomen, Pelvis Time Received: 02:[address] Reviewed: Yes: I have viewed the radiologist's interpretation Preliminary Findings: Normal/NAD Medical Decision Narrative: Patient's blood glucose was 30 after an amp of D50 return to 96. When patient was here previously 3 days ago her H&H was today it is 04/2012. I did speak with Dr. Watkins at [facility] and she accepted the patient I also spoke to Dr. Valdez the GI at [facility] and
--- NOTE | 2020-06-02 02:28 | PC.NURSE ---
pt accepted to [facility]
--- NOTE | 2020-06-02 02:29 | ECG_ITS ---
APPROVED REPORT Exam: Resting ECG HR:81 bpm ECG Measurements Heart Rate 81 AXES NH 150 P 40 QRSd 90 QRS 40 QT 396 T 81 QTc 460 <Conclusion> Normal sinus rhythm Prolonged QT Abnormal ECG Electronically signed by : Nain Rose, 06/04/2020 08:30:42
--- NOTE | 2020-06-02 02:30 | PC.NURSE ---
waiting on a room assignment for pt
--- NOTE | 2020-06-02 02:34 | PC.NURSE ---
speaking to dr zelaya at
[2020-06-02 02:41] VITALS: BP 104/72; PULSE 52; RESP 18; O2SAT 100
[2020-06-02 02:49] LABS: POC Glucose,Bedside 90 (70-110)
--- NOTE | 2020-06-02 03:02 | PC.NURSE ---
pt refuses to keep pulse ox on and keep ripping it off when staff ask her to leave it on. staff has to continue to reapply pulse ox to obtain vitals. pt will be resting with eyes closed appearing to be sleeping when she wakes up randomly and screams help me over and over again. staff try to address the pts needs by asking her what she needs, readjusting pt and giving the pt a warm blanket for comfort. pt refuses to tell staff what she needs help with and falls back asleep until she wakes up screaming again.
[2020-06-02 03:08] LABS: Lymphocytes % 14 % (10-50); Macrocytosis 1+; Neutrophils % 86 % (42-76); Nucleated Red Blood Cells 8; Ovalocytes 1+; Platelet Estimate Normal; Stomatocytes 1+; Total Cells Counted 100
[2020-06-02 03:18] VITALS: BP 103/61; PULSE 80; RESP 18; O2SAT 94
--- NOTE | 2020-06-02 03:44 | PC.NURSE ---
called [facility] for pt update on bed assignment. spoke with bed placement and they stated that the pt has a bed but they couldnt take a new pt yet until the hospitalists gets caught up on his work
[2020-06-02 03:50] VITALS: BP 106/62; PULSE 72; RESP 18; O2SAT 92
--- NOTE | 2020-06-02 04:05 | PC.NURSE ---
pt still waking up randomly and screaming until she falls back asleep. staff at bedside to adjust pts needs. pt wont report anything wrong and continues to scream.
[2020-06-02 04:43] VITALS: BP 117/74; PULSE 61; RESP 16; O2SAT 94
--- NOTE | 2020-06-02 05:21 | PC.NURSE ---
fsbs 70 at this time
[2020-06-02 05:39] LABS: POC Glucose,Bedside 70 (70-110)
[2020-06-02 05:48] VITALS: BP 110/68; PULSE 65; RESP 16; TEMP 37; O2SAT 95
== END 2020-06-02 05:52 | disposition short-term general hospital (02) ==
PROVIDERS: Emergency Provider Family Medicine; PCP Emergency Medicine
DX: K92.2 Gastrointestinal hemorrhage, unspecified (principal); N18.6 End stage renal disease; E11.649 Type 2 diabetes mellitus with hypoglycemia without coma; Z79.4 Long term (current) use of insulin; J44.9 Chronic obstructive pulmonary disease, unspecified; E78.5 Hyperlipidemia, unspecified; K21.9 Gastro-esophageal reflux disease without esophagitis; Z79.899 Other long term (current) drug therapy
CPT/HCPCS: 71045; 74176; 80053; 82272; 82962; 84484; 85007; 85025; 86850; 93005; 96365; 96367; 96375; 99284; G0328